=== PATIENT | male | born 1965 | race Caucasian/White ===

== ENCOUNTER 2018-06-06 17:36 | Inpatient (IN) | payer MEDICAID ==
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
[2018-06-06] MEDS ORDERED: Morphine 4 MG/ML Syringe IVPUSH ONE (18:40)
[2018-06-06] MEDS ORDERED: Sodium Chloride 0.9% 1,000 ML IV ONE (18:42)
[2018-06-06] MEDS ORDERED: Iopamidol 755 Mg/ML 100 ML Bottle IV ONE (18:54)
[2018-06-06] MEDS: Sodium Chloride 0.9% 10 ML Syringe FLUSH PRN (19:05)
[2018-06-06] MEDS ORDERED: Morphine 2 MG/ML Syringe ONE (19:10)
[2018-06-06] MEDS ORDERED: Morphine 2 MG/ML Syringe IVPUSH ONE (19:15)
[2018-06-06] MEDS ORDERED: Piperacillin/Tazobactam 3.375 GM in Sodium Chloride 0.9% 50 ML IV STA (19:39)
[2018-06-06] MEDS ORDERED: HYDROmorphone 2 MG/ML SDV IVPUSH ONE (19:41)
--- NOTE | 2018-06-06 20:47 | PCM.HP ---
H&P History of Present Illness - General Date of Service: 06/06/18 Source of Information: Patient, Old Records History Limitations: Reports: No Limitations - History of Present Illness Symptom Onset Date: 06/05/18 (became much worse this afternoon) Location: Reports: Abdomen (RUQ) Quality: Reports: Sharp, Stabbing, Other (Radiates to right shoulder) Improves with: Reports: Movement Worsens with: Reports: None Associated Symptoms: Reports: No Other Symptoms, Diaphoresis abdominal Pain Score (Numeric/FACES): 10 - Related Data Allergies/Adverse Reactions: Allergies Allergy/AdvReac Type Severity Reaction Status Date / Time codeine Allergy Rash Verified 06/06/18 19:12 hydrocortisone Allergy Abdominal Verified 06/06/18 19:12 [From Hydrocortone] Pain Home Medications: Home Meds Acetaminophen/oxyCODONE [Percocet 325-5 MG] 0.5 - 1 tab PO BID PRN 01/16/18 [ History] ClonazePAM [KlonoPIN] 0.5 mg PO BEDTIME 01/16/18 [History] oxyCODONE HCl [Oxycontin] 40 mg PO BID 01/16/18 [History] tiZANidine HCl [Zanaflex] 4 mg PO BEDTIME 01/16/18 [History] Cetirizine [ZyrTEC] 10 mg PO DAILY 06/06/18 [History] Past Medical History HEENT History: Reports: Hard of Hearing Other HEENT History: L hearing problems from tube plugged Cardiovascular History: Reports: Hypertension Respiratory History: Reports: COPD, Sleep Apnea Gastrointestinal History: Reports: Chronic Constipation, GERD Musculoskeletal History: Reports: Fracture, Neck Pain, Chronic Other Musculoskeletal History: hx R ft fx, mid back transverse process fx Neurological History: Reports: Migraines Other Neuro History: Tension headaches, TBI Psychiatric History: Reports: Anxiety, Depression, Panic Attack - Infectious Disease History Infectious Disease History: Reports: Chicken Pox - Past Surgical History HEENT Surgical History: Reports: Adenoidectomy, Eye Surgery, Tonsillectomy Other HEENT Surgeries/Procedures: lazy eye surgery R eye GI Surgical History: Reports: Colonoscopy Neurological Surgical History: Reports: C-Spine, Spinal Fusion Other Neurological Surgeries/Procedures: neck fusion Musculoskeletal Surgical History: Reports: Other (See Below) Other Musculoskeletal Surgeries/Procedures:: neck fusion Social & Family History - Family History Family Medical History: Noncontributory - Tobacco Use Smoking Status *Q: Current Every Day Smoker Years of Tobacco use: 20 Packs/Tins Daily: 0.5 - Caffeine Use Caffeine Use: Reports: Soda - Recreational Drug Use Recreational Drug Use: No H&P Review of Systems - Review of Systems: Review Of Systems: See Below General: Reports: Diaphoresis. Denies: Fever, Chills Pulmonary: Reports: No Symptoms Cardiovascular: Reports: No Symptoms Gastrointestinal: Reports: Abdominal Pain (as in HPI) Genitourinary: Reports: No Symptoms Musculoskeletal: Reports: Neck Pain, Shoulder Pain (right) Exam - Exam Exam: See Below - Vital Signs Vital Signs: Last Vital Signs Temp 98.1 F 06/06/18 17:36 Pulse 68 06/06/18 17:36 Resp 16 06/06/18 18:45 BP 186/99 H 06/06/18 18:45 Pulse Ox 98 06/06/18 18:45 Weight: 97.522 kg - Exam General: Alert, Oriented Lungs: Clear to Auscultation, Normal Respiratory Effort Cardiovascular: Regular Rate, Regular Rhythm GI/Abdominal Exam: No Distention, No Mass, Guarding, Tender. No: Distended, Hernia - Patient Data Lab Results Last 24 hrs: Laboratory Results - last 24 hr 06/06/18 06/06/18 06/06/18 Range/Units 18:00 18:00 18:00 WBC 14.8 H (4.5-12.0) X10-3/uL RBC 5.56 (4.30-5.75) x10(6)uL Hgb 15.9 H (11.5-15.5) g/dL Hct 47.2 (30.0-51.3) % MCV 84.8 (80-96) fL MCH 28.6 (27.7-33.6) pg MCHC 33.7 (32.2-35.4) g/dL RDW 12.6 (11.5-15.5) % Plt Count 235 (125-369) X10(3)uL MPV 7.0 L (7.4-10.4) fL Add Manual Diff Yes Neutrophils % (Manual) 83 H (46-82) % Band Neutrophils % 2 (0-6) % Lymphocytes % (Manual) 10 L (13-37) % Monocytes % (Manual) 5 (4-12) % Sodium 139 (135-145) mmol/L Potassium 3.6 (3.5-5.3) mmol/L Chloride 99 L (100-110) mmol/L Carbon Dioxide 29 (21-32) mmol/L BUN 18 (7-18) mg/dL Creatinine 1.3 (0.70-1.30) mg/dL Est Cr Clr Drug Dosing TNP Estimated GFR (MDRD) 58 L (>60) BUN/Creatinine Ratio 13.8 (9-20) Glucose 192 H D (80-116) mg/dL Calcium 8.9 (8.6-10.2) mg/dL Total Bilirubin 0.8 (0.1-1.3) mg/dL Direct Bilirubin 0.24 H (0.10-0.20) mg/dL AST 29 H D (5-25) IU/L ALT 31 (12-36) U/L Alkaline Phosphatase 95 (56-112) IU/L Troponin I < 0.017 L (<0.017-0.056) ng/mL Total Protein 7.7 (6.0-8.0) g/dL Albumin 3.7 (3.5-5.2) g/dL Amylase 22 L (25-115) U/L Urine Color (YELLOW) Urine Appearance (CLEAR) Urine pH (5.0-6.5) Ur Specific [place] (1.010-1.025) Urine Protein (NEGATIVE) mg/dL Urine Glucose (UA) (NEGATIVE) mg/dL Urine Ketones (NEGATIVE) mg/dL Urine Occult Blood (NEGATIVE) Urine Nitrite (NEGATIVE) Urine Bilirubin (NEGATIVE) Urine Urobilinogen (NEGATIVE) mg/dL Ur Leukocyte Esterase (NEGATIVE) Urine RBC (0) Urine WBC (0) Ur Squamous Epith Cells (NS,R,O) Urine Bacteria (NS) Urine Opiates Screen (NEGATIVE) Ur Oxycodone Screen (NEGATIVE) Ur Propoxyphene Screen (NEGATIVE) Ur Barbituates Screen (NEGATIVE) Ur Tricyclics Screen (NEGATIVE) Ur Phencyclidine Scrn (NEGATIVE) Ur Amphetamine Screen (NEGATIVE) Urine MDMA Screen (NEGATIVE) U Benzodiazepines Scrn (NEGATIVE) U Cocaine Metab Screen (NEGATIVE) U Marijuana (THC) Screen (NEGATIVE) 06/06/18 06/06/18 Range/Units 18:35 18:35 WBC (4.5-12.0) X10-3/uL RBC (4.30-5.75) x10(6)uL Hgb (11.5-15.5) g/dL Hct (30.0-51.3) % MCV (80-96) fL MCH (27.7-33.6) pg MCHC (32.2-35.4) g/dL RDW (11.5-15.5) % Plt Count (125-369) X10(3)uL MPV (7.4-10.4) fL Add Manual Diff Neutrophils % (Manual) (46-82) % Band Neutrophils % (0-6) % Lymphocytes % (Manual) (13-37) % Monocytes % (Manual) (4-12) % Sodium (135-145) mmol/L Potassium (3.5-5.3) mmol/L Chloride (100-110) mmol/L Carbon Dioxide (21-32) mmol/L BUN (7-18) mg/dL Creatinine (0.70-1.30) mg/dL Est Cr Clr Drug Dosing Estimated GFR (MDRD) (>60) BUN/Creatinine Ratio (9-20) Glucose (80-116) mg/dL Calcium (8.6-10.2) mg/dL Total Bilirubin (0.1-1.3) mg/dL Direct Bilirubin (0.10-0.20) mg/dL AST (5-25) IU/L ALT (12-36) U/L Alkaline Phosphatase (56-112) IU/L Troponin I (<0.017-0.056) ng/mL Total Protein (6.0-8.0) g/dL Albumin (3.5-5.2) g/dL Amylase (25-115) U/L Urine Color [place] (YELLOW) Urine Appearance Clear (CLEAR) Urine pH 6.0 (5.0-6.5) Ur Specific [place] 1.020 (1.010-1.025) Urine Protein 100 H (NEGATIVE) mg/dL Urine Glucose (UA) Normal (NEGATIVE) mg/dL Urine Ketones 15 H (NEGATIVE) mg/dL Urine Occult Blood Moderate H (NEGATIVE) Urine Nitrite Negative (NEGATIVE) Urine Bilirubin Small H (NEGATIVE) Urine Urobilinogen 4 H (NEGATIVE) mg/dL Ur Leukocyte Esterase Negative (NEGATIVE) Urine RBC 10-20 H (0) Urine WBC 0-5 (0) Ur Squamous Epith Cells Moderate H (NS,R,O) Urine Bacteria Moderate H (NS) Urine Opiates Screen Positive H (NEGATIVE) Ur Oxycodone Screen Positive (NEGATIVE) Ur Propoxyphene Screen Negative (NEGATIVE) Ur Barbituates Screen Negative (NEGATIVE) Ur Tricyclics Screen Negative (NEGATIVE) Ur Phencyclidine Scrn Negative (NEGATIVE) Ur Amphetamine Screen Negative (NEGATIVE) Urine MDMA Screen Negative (NEGATIVE) U Benzodiazepines Scrn Negative (NEGATIVE) U Cocaine Metab Screen Negative (NEGATIVE) U Marijuana (THC) Screen Negative (NEGATIVE) Result Diagrams: 06/06/18 18:00 06/06/18 18:00 Imaging Impressions Last 24 hrs: CT shows acute cholecystitis - Problem List (1) Acute cholecystitis SNOMED Code(s): 24995991 ICD Code: K81.0 - ACUTE CHOLECYSTITIS Status: Acute Current Visit: Yes Problem List Initiated/Reviewed/Updated: Yes Orders Last 24hrs: Active Orders 24 hr Category Date Time Status EKG Documentation Completion [RC] ASDIRECTED Care 06/06/18 17:49 Active Abdomen 2V AP Flat Upright [CR] Stat Exams 06/06/18 17:48 Taken Abdomen Pelvis w Cont [CT] Stat Exams 06/06/18 18:36 Taken Sodium Chloride 0.9% [Saline Flush] Med 06/06/18 18:43 Active 10 ml FLUSH ASDIRECTED PRN Peripheral IV Insertion Adult [OM.PC] Routine Oth 06/06/18 18:43 Ordered EKG 12 Lead [EK] Routine Ther 06/06/18 17:48 Ordered Medication Orders Sodium Chloride (Saline Flush) 10 ml FLUSH ASDIRECTED PRN PRN Reason: Keep Vein Open Last Admin: 06/06/18 19:05 Dose: 10 ml Assessment/Plan Comment:: Will proceed with emergent lap verito raman Discussed risks and complications of bleeding infection, anesth, bile duct injury and need to open, consent obtained
[2018-06-06] MEDS ORDERED: Rocuronium 100 MG/10 ML MDV IV ONE (21:27)
[2018-06-06] MEDS ORDERED: Sugammadex Sodium 200 MG/2 ML VIAL IV ONE (21:27)
[2018-06-06] MEDS ORDERED: Lidocaine 2% 100 MG/5 ML Syringe IVPUSH ONE (21:27)
[2018-06-06] MEDS ORDERED: HYDROmorphone 2 MG/ML SDV IV ONE (21:27)
[2018-06-06] MEDS ORDERED: Midazolam 1 MG/ML 2 ML SDV IV ONE (21:27)
[2018-06-06] MEDS ORDERED: Lactated Ringers 1,000 ML IV ONE (21:27)
[2018-06-06] MEDS ORDERED: Acetaminophen 1,000 MG/100 ML Infusion Bottle IV ONE (21:27)
[2018-06-06] MEDS ORDERED: Labetalol 20 MG/4 ML Syringe IV ONE (21:27)
[2018-06-06] MEDS ORDERED: Propofol 200 MG/20 ML SDV IV ONE (21:27)
[2018-06-06] MEDS ORDERED: Dexamethasone 4 MG/ML 5 ML MDV IVPUSH ONE (21:27)
[2018-06-06] MEDS ORDERED: Ondansetron 4 MG/2 ML SDV IVPUSH ONE (21:27)
[2018-06-06] MEDS ORDERED: Dexmedetomidine 200 MCG/2 ML SDV IV ONE (21:27)
--- NOTE | 2018-06-07 01:30 | PCM.OPNOTE ---
- General Post-Op/Procedure Note Date of Surgery/Procedure: 06/07/18 Operative Procedure(s): Lap Ellen. Peritoneal lavage. Adhesiolysis Findings: Acute perforated Cholecystitis; Cholelithiasis Pre Op Diagnosis: Acute Cholecystitis Post-Op Diagnosis: Same Anesthesia Technique: General ET Tube Primary Surgeon: Tobi Lau Anesthesia Provider: Karolyn Dobson Pathology: Gallbladder and Cultures EBL in mLs: 200 Surgical Drain/Tube Type: Haider Rizo Round Drain Complications: None Condition: Good
[2018-06-07] MEDS: Lactated Ringers 1,000 ML IV SCH ×3 (02:53→23:38)
[2018-06-07] MEDS: Piperacillin/Tazobactam 3.375 GM in Sodium Chloride 0.9% 50 ML IV SCH ×4 (03:05→20:10)
--- NOTE | 2018-06-07 04:00 | OR ---
DATE OF OPERATION: 06/07/2018 SURGEON: Tobi Lau MD PREOPERATIVE DIAGNOSIS: Acute cholecystitis. POSTOPERATIVE DIAGNOSIS: Acute perforated cholecystitis and cholelithiasis with peritonitis and adhesions. PROCEDURE: 1. Laparoscopic cholecystectomy with adhesiolysis. 2. Peritoneal lavage. ANESTHESIA: General. PROCEDURE DETAILS: The patient was brought to the operating room, where general endotracheal anesthesia was administered. Flowtrons were placed. The abdomen was prepped with ChloraPrep and draped sterilely. An infraumbilical incision was made and extended into the peritoneal cavity without difficulty. The Troy cannulator was introduced and pneumoperitoneum obtained. There was peritonitis throughout with the bowel, omental, and peritoneal surfaces being edematous and inflamed. There is cloudy yellowish drainage along the gutters and did not appear to be pus but rather cloudy ascites. This was suctioned and sent for culture. 200 mL of ascites was removed. Two 6-8 mm gallstones were present along the right gutter. The gallbladder was walled off with omentum, and approximately half an hour was spent peeling the omentum off the undersurface of the gallbladder and liver to visualize this. The stomach was distended, so an orogastric tube was placed to decompress this also. The patient was placed in reverse Trendelenburg position and rotated to his left. The gallbladder was too tense to grasp, so approximately 40 mL of fluid was removed. Gallbladder was still difficult to grasp well during the procedure. As I grasped the gallbladder and retracted it cephalad, I was able to strip some of the thickened peritoneum off its base. In doing so, it became apparent that the gallbladder had perforated near the base of the body and neck, and this area was very inflamed and scarred and difficult to dissect. Several more gallstones came out through this opening in the gallbladder during the procedure. With tedious dissection, I was able to identify the cystic artery which was seen pulsating and going onto the surface of the gallbladder. This was doubly clipped proximally, once distally, and then transected. The neck of the gallbladder was very thick and inflamed due to the adjacent perforation. I was able to peel away some of the thickened peritoneum and identify the cystic duct. I was able to dissect around this circumferentially but was unable to dissect the lower portion of the gallbladder because of its inability to be moved or retracted. I decided to attempt to remove as much of the gallbladder from the bed of the liver as possible before I did any clipping or cutting of structures. I was able to free up approximately the upper half of the gallbladder, but the posterior wall was unable to be dissected from the bed of the liver. Many more gallstones came out during this portion. I was, however, able to free up enough of the gallbladder to help confirm the anatomy. I did not feel that a cholangiogram was possible since the cystic duct was too thick and inflamed to attempt cannulation. I eventually decided to transect the gallbladder at its lower body portion leaving the neck and cystic duct. Once I did this, the gallbladder was freed up from the rest of the bed of the liver and placed in an Endopouch and removed. The portion of the gallbladder that remained was the neck and cystic duct. I did not feel comfortable trying to dissect this further since it was so thick and inflamed. I placed a 2-0 PDS ligature around the junction of the neck and cystic duct to seal this off. There was a posterior branch of the cystic artery that had been bleeding intermittently during the procedure, and I did identify this and clip it. A second Endopouch was inserted, and all the gallstones were retrieved that I could find. Much time was spent irrigating and trying to make sure that all the gallstones had been removed. Once the gallbladder was removed, there was no problem with hemostasis, so a Surgicel was not placed. I did place a quarter-inch round Davol drain in the bed of the liver and brought out through the right lateral port and secured to the skin with 2-0 silk. Almost 2 L of irrigation was used to remove all the cloudy fluid from the right gutter, pelvis, and right upper quadrant. The ports were removed under direct vision and remained hemostatic. Umbilical fascia was closed with #0 Vicryl. Skin was closed with #4-0 Vicryl subcuticular sutures. Benzoin and Steri-Strips were placed and Band-Aids applied. The patient tolerated the procedure well. Estimated blood loss, 200 mL. He returned to Postanesthesia in stable condition. /[id number] DELMER/LINDA MERCADO
[2018-06-07] MEDS: Acetaminophen/HYDROcodone 325-7.5 MG Tab PO PRN ×4 (05:20→18:27)
--- NOTE | 2018-06-07 08:38 | CR ---
INDICATION: Abdomen pain, elevated white count at 14,800. ABDOMEN: Four images of the abdomen in supine and upright projections revealed a fairly nonspecific pattern of gas and feces without evidence of free air or obstruction. There is a capsule-like density near the cap of the cecum, which could represent medication, although unusual appendicolith would also be a consideration. This should be correlated clinically. Overlying EKG leads and snaps are noted. Mild dextroconcave scoliosis of the lower middle lumbar spine is noted. No organomegaly or mass lesions were suggested. IMPRESSION: Nonacute abdomen - medication, game shot, versus unusual appendicolith in the right lower quadrant - correlate clinically. Report was called to Dr. Tellez at 1850 hours on 06/06/17. [facility]
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
[2018-06-07] MEDS: oxyCODONE ER 20 MG TAB.ER PO SCH ×2 (10:33→21:41)
--- NOTE | 2018-06-07 11:44 | PCM.SURGPN ---
- General Info Date of Service: 06/07/18 POD#: 0 Functional Status: Reports: Pain Controlled, Tolerating Diet - Review of Systems General: Reports: No Symptoms Pulmonary: Reports: No Symptoms Cardiovascular: Reports: No Symptoms Gastrointestinal: Reports: Abdominal Pain (much better, controlled with meds) - Patient Data Vitals - Most Recent: Last Vital Signs Temp 96.9 F 06/07/18 05:00 Pulse 70 06/07/18 07:00 Resp 16 06/07/18 07:00 BP 119/71 06/07/18 07:00 Pulse Ox 94 L 06/07/18 07:00 Weight - Most Recent: 102.058 kg I&O - Last 24 Hours: Intake & Output 06/06/18 06/07/18 06/07/18 22:59 06:59 14:59 Intake Total 430 Output Total 895 Balance -465 Lab Results Last 24 Hrs: Laboratory Results - last 24 hr 06/06/18 06/06/18 06/06/18 Range/Units 18:00 18:00 18:00 WBC 14.8 H (4.5-12.0) X10-3/uL RBC 5.56 (4.30-5.75) x10(6)uL Hgb 15.9 H (11.5-15.5) g/dL Hct 47.2 (30.0-51.3) % MCV 84.8 (80-96) fL MCH 28.6 (27.7-33.6) pg MCHC 33.7 (32.2-35.4) g/dL RDW 12.6 (11.5-15.5) % Plt Count 235 (125-369) X10(3)uL MPV 7.0 L (7.4-10.4) fL Add Manual Diff Yes Neutrophils % (Manual) 83 H (46-82) % Band Neutrophils % 2 (0-6) % Lymphocytes % (Manual) 10 L (13-37) % Monocytes % (Manual) 5 (4-12) % Sodium 139 (135-145) mmol/L Potassium 3.6 (3.5-5.3) mmol/L Chloride 99 L (100-110) mmol/L Carbon Dioxide 29 (21-32) mmol/L BUN 18 (7-18) mg/dL Creatinine 1.3 (0.70-1.30) mg/dL Est Cr Clr Drug Dosing TNP Estimated GFR (MDRD) 58 L (>60) BUN/Creatinine Ratio 13.8 (9-20) Glucose 192 H D (80-116) mg/dL Calcium 8.9 (8.6-10.2) mg/dL Total Bilirubin 0.8 (0.1-1.3) mg/dL Direct Bilirubin 0.24 H (0.10-0.20) mg/dL AST 29 H D (5-25) IU/L ALT 31 (12-36) U/L Alkaline Phosphatase 95 (56-112) IU/L Troponin I < 0.017 L (<0.017-0.056) ng/mL Total Protein 7.7 (6.0-8.0) g/dL Albumin 3.7 (3.5-5.2) g/dL Globulin g/dL Albumin/Globulin Ratio Amylase 22 L (25-115) U/L Urine Color (YELLOW) Urine Appearance (CLEAR) Urine pH (5.0-6.5) Ur Specific [place] (1.010-1.025) Urine Protein (NEGATIVE) mg/dL Urine Glucose (UA) (NEGATIVE) mg/dL Urine Ketones (NEGATIVE) mg/dL Urine Occult Blood (NEGATIVE) Urine Nitrite (NEGATIVE) Urine Bilirubin (NEGATIVE) Urine Urobilinogen (NEGATIVE) mg/dL Ur Leukocyte Esterase (NEGATIVE) Urine RBC (0) Urine WBC (0) Ur Squamous Epith Cells (NS,R,O) Urine Bacteria (NS) Urine Opiates Screen (NEGATIVE) Ur Oxycodone Screen (NEGATIVE) Ur Propoxyphene Screen (NEGATIVE) Ur Barbituates Screen (NEGATIVE) Ur Tricyclics Screen (NEGATIVE) Ur Phencyclidine Scrn (NEGATIVE) Ur Amphetamine Screen (NEGATIVE) Urine MDMA Screen (NEGATIVE) U Benzodiazepines Scrn (NEGATIVE) U Cocaine Metab Screen (NEGATIVE) U Marijuana (THC) Screen (NEGATIVE) 06/06/18 06/06/18 06/07/18 Range/Units 18:35 18:35 06:04 WBC 15.0 H (4.5-12.0) X10-3/uL RBC 4.84 (4.30-5.75) x10(6)uL Hgb 13.6 (11.5-15.5) g/dL Hct 41.0 (30.0-51.3) % MCV 84.8 (80-96) fL MCH 28.1 (27.7-33.6) pg MCHC 33.1 (32.2-35.4) g/dL RDW 12.8 (11.5-15.5) % Plt Count 196 (125-369) X10(3)uL MPV 7.8 (7.4-10.4) fL Add Manual Diff Yes Neutrophils % (Manual) 86 H (46-82) % Band Neutrophils % 4 (0-6) % Lymphocytes % (Manual) 7 L (13-37) % Monocytes % (Manual) 3 L (4-12) % Sodium (135-145) mmol/L Potassium (3.5-5.3) mmol/L Chloride (100-110) mmol/L Carbon Dioxide (21-32) mmol/L BUN (7-18) mg/dL Creatinine (0.70-1.30) mg/dL Est Cr Clr Drug Dosing Estimated GFR (MDRD) (>60) BUN/Creatinine Ratio (9-20) Glucose (80-116) mg/dL Calcium (8.6-10.2) mg/dL Total Bilirubin (0.1-1.3) mg/dL Direct Bilirubin (0.10-0.20) mg/dL AST (5-25) IU/L ALT (12-36) U/L Alkaline Phosphatase (56-112) IU/L Troponin I (<0.017-0.056) ng/mL Total Protein (6.0-8.0) g/dL Albumin (3.5-5.2) g/dL Globulin g/dL Albumin/Globulin Ratio Amylase (25-115) U/L Urine Color [place] (YELLOW) Urine Appearance Clear (CLEAR) Urine pH 6.0 (5.0-6.5) Ur Specific [place] 1.020 (1.010-1.025) Urine Protein 100 H (NEGATIVE) mg/dL Urine Glucose (UA) Normal (NEGATIVE) mg/dL Urine Ketones 15 H (NEGATIVE) mg/dL Urine Occult Blood Moderate H (NEGATIVE) Urine Nitrite Negative (NEGATIVE) Urine Bilirubin Small H (NEGATIVE) Urine Urobilinogen 4 H (NEGATIVE) mg/dL Ur Leukocyte Esterase Negative (NEGATIVE) Urine RBC 10-20 H (0) Urine WBC 0-5 (0) Ur Squamous Epith Cells Moderate H (NS,R,O) Urine Bacteria Moderate H (NS) Urine Opiates Screen Positive H (NEGATIVE) Ur Oxycodone Screen Positive (NEGATIVE) Ur Propoxyphene Screen Negative (NEGATIVE) Ur Barbituates Screen Negative (NEGATIVE) Ur Tricyclics Screen Negative (NEGATIVE) Ur Phencyclidine Scrn Negative (NEGATIVE) Ur Amphetamine Screen Negative (NEGATIVE) Urine MDMA Screen Negative (NEGATIVE) U Benzodiazepines Scrn Negative (NEGATIVE) U Cocaine Metab Screen Negative (NEGATIVE) U Marijuana (THC) Screen Negative (NEGATIVE) 06/07/18 Range/Units 06:04 WBC (4.5-12.0) X10-3/uL RBC (4.30-5.75) x10(6)uL Hgb (11.5-15.5) g/dL Hct (30.0-51.3) % MCV (80-96) fL MCH (27.7-33.6) pg MCHC (32.2-35.4) g/dL RDW (11.5-15.5) % Plt Count (125-369) X10(3)uL MPV (7.4-10.4) fL Add Manual Diff Neutrophils % (Manual) (46-82) % Band Neutrophils % (0-6) % Lymphocytes % (Manual) (13-37) % Monocytes % (Manual) (4-12) % Sodium 138 (135-145) mmol/L Potassium 4.0 (3.5-5.3) mmol/L Chloride 102 (100-110) mmol/L Carbon Dioxide 26 (21-32) mmol/L BUN 16 (7-18) mg/dL Creatinine 1.0 (0.70-1.30) mg/dL Est Cr Clr Drug Dosing 100.93 Estimated GFR (MDRD) > 60 (>60) BUN/Creatinine Ratio 16.0 (9-20) Glucose 160 H (80-116) mg/dL Calcium 8.2 L (8.6-10.2) mg/dL Total Bilirubin 1.1 (0.1-1.3) mg/dL Direct Bilirubin (0.10-0.20) mg/dL AST 49 H D (5-25) IU/L ALT 52 H D (12-36) U/L Alkaline Phosphatase 86 (56-112) IU/L Troponin I (<0.017-0.056) ng/mL Total Protein 6.4 (6.0-8.0) g/dL Albumin 2.8 L (3.5-5.2) g/dL Globulin 3.6 g/dL Albumin/Globulin Ratio 0.8 Amylase (25-115) U/L Urine Color (YELLOW) Urine Appearance (CLEAR) Urine pH (5.0-6.5) Ur Specific [place] (1.010-1.025) Urine Protein (NEGATIVE) mg/dL Urine Glucose (UA) (NEGATIVE) mg/dL Urine Ketones (NEGATIVE) mg/dL Urine Occult Blood (NEGATIVE) Urine Nitrite (NEGATIVE) Urine Bilirubin (NEGATIVE) Urine Urobilinogen (NEGATIVE) mg/dL Ur Leukocyte Esterase (NEGATIVE) Urine RBC (0) Urine WBC (0) Ur Squamous Epith Cells (NS,R,O) Urine Bacteria (NS) Urine Opiates Screen (NEGATIVE) Ur Oxycodone Screen (NEGATIVE) Ur Propoxyphene Screen (NEGATIVE) Ur Barbituates Screen (NEGATIVE) Ur Tricyclics Screen (NEGATIVE) Ur Phencyclidine Scrn (NEGATIVE) Ur Amphetamine Screen (NEGATIVE) Urine MDMA Screen (NEGATIVE) U Benzodiazepines Scrn (NEGATIVE) U Cocaine Metab Screen (NEGATIVE) U Marijuana (THC) Screen (NEGATIVE) Med Orders - Current: Current Medications Hydrocodone Bitart/Acetaminophen ([place] 325-7.5 Mg) 1 tab PO Q4H PRN PRN Reason: Pain (moderate 4-6) Last Admin: 06/07/18 09:21 Dose: 1 tab Cetirizine HCl (Zyrtec) 10 mg PO DAILY COUNTS INCLUDE 234 BEDS AT THE [facility] Clonazepam (Klonopin) 0.5 mg PO BEDTIME COUNTS INCLUDE 234 BEDS AT THE [facility] Lactated Ringer's (Ringers, Lactated) 1,000 mls @ 125 mls/hr IV ASDIRECTED COUNTS INCLUDE 234 BEDS AT THE [facility] Last Admin: 06/07/18 02:53 Dose: 125 mls/hr Piperacillin Sod/Tazobactam (Sod 3.375 gm/ Sodium Chloride) 50 mls @ 100 mls/ hr IV Q6H COUNTS INCLUDE 234 BEDS AT THE [facility] Last Admin: 06/07/18 09:21 Dose: 100 mls/hr Sodium Chloride (Normal Saline) 250 mls @ 100 mls/hr IV ASDIRECTED COUNTS INCLUDE 234 BEDS AT THE [facility] Morphine Sulfate (Morphine) 2 mg IVPUSH Q1H PRN PRN Reason: Abdominal Pain Oxycodone HCl (Oxycontin) 40 mg PO BID ABBI Last Admin: 06/07/18 10:33 Dose: 40 mg Sodium Chloride (Saline Flush) 10 ml FLUSH ASDIRECTED PRN PRN Reason: Keep Vein Open Last Admin: 06/06/18 19:05 Dose: 10 ml Tizanidine HCl (Zanaflex) 4 mg PO BEDTIME ABBI Discontinued Medications Hydromorphone HCl (Dilaudid) 1 mg IVPUSH ONETIME ONE Stop: 06/06/18 19:42 Last Admin: 06/06/18 19:48 Dose: 1 mg Sodium Chloride (Normal Saline) 1,000 mls @ 999 mls/hr IV .BOLUS ONE Stop: 06/06/18 19:42 Last Admin: 06/06/18 19:34 Dose: 999 mls/hr Piperacillin Sod/Tazobactam (Sod 3.375 gm/ Sodium Chloride) 50 mls @ 100 mls/ hr IV Q6H STA Stop: 06/06/18 20:08 Last Admin: 06/06/18 19:44 Dose: 100 mls/hr Iopamidol (Isovue-370 (76%)) 100 ml IV . DIRECTED ONE Stop: 06/06/18 18:55 Last Admin: 06/06/18 19:27 Dose: 100 ml Morphine Sulfate (Morphine) 4 mg IVPUSH ONETIME ONE Stop: 06/06/18 18:41 Last Admin: 06/06/18 19:12 Dose: Not Given Morphine Sulfate (Morphine) Confirm Administered Dose 4 mg .ROUTE .STK-MED ONE Stop: 06/06/18 19:11 Last Admin: 06/06/18 19:12 Dose: Not Given Morphine Sulfate (Morphine) 4 mg IVPUSH ONETIME ONE Stop: 06/06/18 19:16 Last Admin: 06/06/18 19:43 Dose: 4 mg - Exam Wound/Incisions: Dressing Dry and Intact, Drainage (serous from [facility]) General: Alert, Oriented GI/Abdominal Exam: Soft, Tender (mild) - Problem List & Annotations (1) Acute cholecystitis SNOMED Code(s): 04368146 Code(s): K81.0 - ACUTE CHOLECYSTITIS Status: Acute Current Visit: Yes - Problem List Review Problem List Initiated/Reviewed/Updated: Yes - My Orders Last 24 Hours: Active Orders 24 hr Category Date Time Status Patient Status [ADT] Routine ADT 06/07/18 01:37 Active Drain Management [RC] 08,16,00 Care 06/07/18 01:39 Active Oxygen Therapy [RC] PRN Care 06/07/18 01:37 Active RT Incentive Spirometry [RC] Q2HWA Care 06/07/18 01:36 Active Up With Assistance [RC] 09,13,17,21 Care 06/07/18 01:36 Active Vital Signs [RC] Q4HR Care 06/07/18 01:37 Active Clear Liquid Diet [DIET] Diet 06/07/18 Breakfast Ordered CBC W/O DIFF,HEMOGRAM [HEME] Routine Lab 06/09/18 11:42 Ordered CULTURE ANAEROBIC [RM] Routine Lab 06/06/18 22:10 Received CULTURE ROUTINE + SMEAR [RM] Routine Lab 06/06/18 22:10 Received Acetaminophen/HYDROcodone [[place] 325-7.5 MG] Med 06/07/18 01:36 Active 1 tab PO Q4H PRN Cetirizine [ZyrTEC] Med 06/08/18 09:00 Active 10 mg PO DAILY ClonazePAM [KlonoPIN] Med 06/07/18 21:00 Active 0.5 mg PO BEDTIME Lactated Ringers [Ringers, Lactated] 1,000 ml Med 06/07/18 01:45 Active IV ASDIRECTED Morphine Med 06/07/18 01:36 Active 2 mg IVPUSH Q1H PRN Piperacillin/Tazobactam [Zosyn] 3.375 gm Med 06/07/18 02:00 Active Sodium Chloride 0.9% [Normal Saline] 50 ml IV Q6H Sodium Chloride 0.9% [Normal Saline] 250 ml Med 06/07/18 03:15 Active IV ASDIRECTED Sodium Chloride 0.9% [Saline Flush] Med 06/06/18 18:43 Active 10 ml FLUSH ASDIRECTED PRN oxyCODONE ER [OxyCONTIN] Med 06/07/18 10:15 Active 40 mg PO BID tiZANidine [Zanaflex] Med 06/07/18 21:00 Active 4 mg PO BEDTIME Peripheral IV Insertion Adult [OM.PC] Routine Oth 06/06/18 18:43 Ordered Resuscitation Status Routine Resus Stat 06/07/18 01:36 Ordered EKG 12 Lead [EK] Routine Ther 06/06/18 17:48 Ordered Medication Orders Hydrocodone Bitart/Acetaminophen ([place] 325-7.5 Mg) 1 tab PO Q4H PRN PRN Reason: Pain (moderate 4-6) Last Admin: 06/07/18 09:21 Dose: 1 tab Admin: 06/07/18 05:20 Dose: 1 tab Cetirizine HCl (Zyrtec) 10 mg PO DAILY ABBI Clonazepam (Klonopin) 0.5 mg PO BEDTIME ABBI Lactated Ringer's (Ringers, Lactated) 1,000 mls @ 125 mls/hr IV ASDIRECTED ABBI Last Admin: 06/07/18 02:53 Dose: 125 mls/hr Piperacillin Sod/Tazobactam (Sod 3.375 gm/ Sodium Chloride) 50 mls @ 100 mls/ hr IV Q6H ABBI Last Admin: 06/07/18 09:21 Dose: 100 mls/hr Admin: 06/07/18 03:05 Dose: 100 mls/hr Sodium Chloride (Normal Saline) 250 mls @ 100 mls/hr IV ASDIRECTED COUNTS INCLUDE 234 BEDS AT THE [facility] Morphine Sulfate (Morphine) 2 mg IVPUSH Q1H PRN PRN Reason: Abdominal Pain Oxycodone HCl (Oxycontin) 40 mg PO BID COUNTS INCLUDE 234 BEDS AT THE [facility] Last Admin: 06/07/18 10:33 Dose: 40 mg Sodium Chloride (Saline Flush) 10 ml FLUSH ASDIRECTED PRN PRN Reason: Keep Vein Open Last Admin: 06/06/18 19:05 Dose: 10 ml Tizanidine HCl (Zanaflex) 4 mg PO BEDTIME ABBI - Assessment Assessment (Free Text/Narrative):: Doing well Labs reviewed - Plan Plan (Free Text/Narrative):: Cont as is
[2018-06-07] MEDS: Morphine 2 MG/ML Syringe IVPUSH PRN ×3 (18:03→21:50)
[2018-06-07] MEDS: tiZANidine 4 MG Tab PO SCH (21:50)
[2018-06-07] MEDS: ClonazePAM 0.5 MG Tab PO SCH (21:50)
[2018-06-08] MEDS: Piperacillin/Tazobactam 3.375 GM in Sodium Chloride 0.9% 50 ML IV SCH ×4 (01:45→19:59)
[2018-06-08] MEDS: Sodium Chloride 0.9% 250 ML IV SCH (01:47)
[2018-06-08] MEDS: Acetaminophen/HYDROcodone 325-7.5 MG Tab PO PRN ×3 (04:00→17:50)
[2018-06-08] MEDS: Ketorolac 30 MG/ML SDV IVPUSH PRN ×3 (06:30→19:15)
[2018-06-08] MEDS: Sodium Chloride 0.9% 10 ML Syringe FLUSH PRN ×4 (08:11→14:03)
[2018-06-08] MEDS: Cetirizine 10 MG Tab PO SCH (08:14)
[2018-06-08] MEDS: oxyCODONE ER 20 MG TAB.ER PO SCH ×2 (08:14→21:22)
[2018-06-08] MEDS: Lactated Ringers 1,000 ML IV SCH ×2 (10:00→21:18)
--- NOTE | 2018-06-08 14:10 | PCM.SURGPN ---
- General Info Date of Service: 06/08/18 POD#: 1 Functional Status: Reports: Pain Controlled, Tolerating Diet, Ambulating, Urinating - Review of Systems General: Reports: No Symptoms Pulmonary: Reports: No Symptoms Cardiovascular: Reports: No Symptoms Gastrointestinal: Reports: Abdominal Pain (improved), Other (JOYCE drain output turned bilious this am) - Patient Data Vitals - Most Recent: Last Vital Signs Temp 98.7 F 06/08/18 08:00 Pulse 63 06/08/18 08:00 Resp 14 06/08/18 08:00 BP 124/70 06/08/18 08:00 Pulse Ox 99 06/08/18 08:00 Weight - Most Recent: 102.058 kg I&O - Last 24 Hours: Intake & Output 06/07/18 06/08/18 06/08/18 22:59 06:59 14:59 Intake Total 1425 1085 400 Output Total 355 100 300 Balance 1070 985 100 Arvind Results Last 24 Hrs: Microbiology 06/06/18 22:10 Gram Stain - Final Gallbladder Fluid - Bile Med Orders - Current: Current Medications Hydrocodone Bitart/Acetaminophen ([place] 325-7.5 Mg) 1 tab PO Q4H PRN PRN Reason: Pain (moderate 4-6) Last Admin: 06/08/18 11:55 Dose: 1 tab Cetirizine HCl (Zyrtec) 10 mg PO DAILY [facility] Last Admin: 06/08/18 08:14 Dose: 10 mg Clonazepam (Klonopin) 0.5 mg PO BEDTIME [facility] Last Admin: 06/07/18 21:50 Dose: 0.5 mg Lactated Ringer's (Ringers, Lactated) 1,000 mls @ 100 mls/hr IV ASDIRECTED [facility] Last Admin: 06/08/18 10:00 Dose: 100 mls/hr Piperacillin Sod/Tazobactam (Sod 3.375 gm/ Sodium Chloride) 50 mls @ 100 mls/ hr IV Q6H [facility] Last Admin: 06/08/18 14:00 Dose: 100 mls/hr Sodium Chloride (Normal Saline) 250 mls @ 100 mls/hr IV ASDIRECTED [facility] Last Admin: 06/08/18 01:47 Dose: 100 mls/hr Ketorolac Tromethamine (Toradol) 30 mg IVPUSH Q6H PRN PRN Reason: Pain Stop: 06/13/18 06:21 Last Admin: 06/08/18 13:11 Dose: 30 mg Morphine Sulfate (Morphine) 2 mg IVPUSH Q1H PRN PRN Reason: Abdominal Pain Last Admin: 06/07/18 21:50 Dose: 2 mg Oxycodone HCl (Oxycontin) 40 mg PO BID [facility] Last Admin: 06/08/18 08:14 Dose: 40 mg Sodium Chloride (Saline Flush) 10 ml FLUSH ASDIRECTED PRN PRN Reason: Keep Vein Open Last Admin: 06/08/18 14:03 Dose: 10 ml Tizanidine HCl (Zanaflex) 4 mg PO BEDTIME [facility] Last Admin: 06/07/18 21:50 Dose: 4 mg Discontinued Medications Hydromorphone HCl (Dilaudid) 1 mg IVPUSH ONETIME ONE Stop: 06/06/18 19:42 Last Admin: 06/06/18 19:48 Dose: 1 mg Sodium Chloride (Normal Saline) 1,000 mls @ 999 mls/hr IV .BOLUS ONE Stop: 06/06/18 19:42 Last Admin: 06/06/18 19:34 Dose: 999 mls/hr Piperacillin Sod/Tazobactam (Sod 3.375 gm/ Sodium Chloride) 50 mls @ 100 mls/ hr IV Q6H [facility] Stop: 06/06/18 20:08 Last Admin: 06/06/18 19:44 Dose: 100 mls/hr Iopamidol (Isovue-370 (76%)) 100 ml IV . DIRECTED ONE Stop: 06/06/18 18:55 Last Admin: 06/06/18 19:27 Dose: 100 ml Morphine Sulfate (Morphine) 4 mg IVPUSH ONETIME ONE Stop: 06/06/18 18:41 Last Admin: 06/06/18 19:12 Dose: Not Given Morphine Sulfate (Morphine) Confirm Administered Dose 4 mg .ROUTE .STK-MED ONE Stop: 06/06/18 19:11 Last Admin: 06/06/18 19:12 Dose: Not Given Morphine Sulfate (Morphine) 4 mg IVPUSH ONETIME ONE Stop: 06/06/18 19:16 Last Admin: 06/06/18 19:43 Dose: 4 mg - Exam Wound/Incisions: Healing Well, Dressing Dry and Intact General: Alert, Oriented GI/Abdominal Exam: Soft, Non-Tender, Other (Bile in JOYCE bulb) - Problem List & Annotations (1) Acute cholecystitis SNOMED Code(s): 92519552 Code(s): K81.0 - ACUTE CHOLECYSTITIS Status: Acute Current Visit: Yes - Problem List Review Problem List Initiated/Reviewed/Updated: Yes - My Orders Last 24 Hours: Active Orders 24 hr Category Date Time Status CBC W/O DIFF,HEMOGRAM [HEME] Routine Lab 06/09/18 11:42 Ordered COMPREHENSIVE METABOLIC PN,CMP [CHEM] Routine Lab 06/09/18 14:08 Ordered Cetirizine [ZyrTEC] Med 06/08/18 09:00 Active 10 mg PO DAILY ClonazePAM [KlonoPIN] Med 06/07/18 21:00 Active 0.5 mg PO BEDTIME Ketorolac [Toradol] Med 06/08/18 06:20 Active 30 mg IVPUSH Q6H PRN tiZANidine [Zanaflex] Med 06/07/18 21:00 Active 4 mg PO BEDTIME Medication Orders Hydrocodone Bitart/Acetaminophen ([place] 325-7.5 Mg) 1 tab PO Q4H PRN PRN Reason: Pain (moderate 4-6) Last Admin: 06/08/18 11:55 Dose: 1 tab Admin: 06/08/18 04:00 Dose: 1 tab Admin: 06/07/18 18:27 Dose: 1 tab Admin: 06/07/18 14:46 Dose: 1 tab Admin: 06/07/18 09:21 Dose: 1 tab Admin: 06/07/18 05:20 Dose: 1 tab Cetirizine HCl (Zyrtec) 10 mg PO DAILY [facility] Last Admin: 06/08/18 08:14 Dose: 10 mg Clonazepam (Klonopin) 0.5 mg PO BEDTIME [facility] Last Admin: 06/07/18 21:50 Dose: 0.5 mg Lactated Ringer's (Ringers, Lactated) 1,000 mls @ 100 mls/hr IV ASDIRECTED [facility] Last Admin: 06/08/18 10:00 Dose: 100 mls/hr Infusion: 06/08/18 07:38 Dose: 125 mls/hr Admin: 06/07/18 23:38 Dose: 125 mls/hr Admin: 06/07/18 12:39 Dose: 125 mls/hr Infusion: 06/07/18 10:53 Dose: 125 mls/hr Admin: 06/07/18 02:53 Dose: 125 mls/hr Piperacillin Sod/Tazobactam (Sod 3.375 gm/ Sodium Chloride) 50 mls @ 100 mls/ hr IV Q6H [facility] Last Admin: 06/08/18 14:00 Dose: 100 mls/hr Admin: 06/08/18 08:02 Dose: 100 mls/hr Admin: 06/08/18 01:45 Dose: 100 mls/hr Admin: 06/07/18 20:10 Dose: 100 mls/hr Admin: 06/07/18 14:47 Dose: 100 mls/hr Admin: 06/07/18 09:21 Dose: 100 mls/hr Admin: 06/07/18 03:05 Dose: 100 mls/hr Sodium Chloride (Normal Saline) 250 mls @ 100 mls/hr IV ASDIRECTED [facility] Last Admin: 06/08/18 01:47 Dose: 100 mls/hr Ketorolac Tromethamine (Toradol) 30 mg IVPUSH Q6H PRN PRN Reason: Pain Stop: 06/13/18 06:21 Last Admin: 06/08/18 13:11 Dose: 30 mg Admin: 06/08/18 06:30 Dose: 30 mg Morphine Sulfate (Morphine) 2 mg IVPUSH Q1H PRN PRN Reason: Abdominal Pain Last Admin: 06/07/18 21:50 Dose: 2 mg Admin: 06/07/18 21:49 Dose: 2 mg Admin: 06/07/18 18:03 Dose: 2 mg Oxycodone HCl (Oxycontin) 40 mg PO BID [facility] Last Admin: 06/08/18 08:14 Dose: 40 mg Admin: 06/07/18 21:41 Dose: 40 mg Admin: 06/07/18 10:33 Dose: 40 mg Sodium Chloride (Saline Flush) 10 ml FLUSH ASDIRECTED PRN PRN Reason: Keep Vein Open Last Admin: 06/08/18 14:03 Dose: 10 ml Admin: 06/08/18 13:12 Dose: 10 ml Admin: 06/08/18 08:51 Dose: 10 ml Admin: 06/08/18 08:11 Dose: 10 ml Admin: 06/06/18 19:05 Dose: 10 ml Tizanidine HCl (Zanaflex) 4 mg PO BEDTIME [facility] Last Admin: 06/07/18 21:50 Dose: 4 mg - Assessment Assessment (Free Text/Narrative):: Doing well POD # 1 Bile from JOYCE Drain - Plan Plan (Free Text/Narrative):: Cont as is Recheck labs in am
[2018-06-08] MEDS: tiZANidine 4 MG Tab PO SCH (21:18)
[2018-06-08] MEDS: ClonazePAM 0.5 MG Tab PO SCH (21:22)
[2018-06-09] MEDS: Ketorolac 30 MG/ML SDV IVPUSH PRN ×4 (01:16→23:50)
[2018-06-09] MEDS: Piperacillin/Tazobactam 3.375 GM in Sodium Chloride 0.9% 50 ML IV SCH ×4 (02:00→20:19)
[2018-06-09] MEDS: oxyCODONE ER 20 MG TAB.ER PO SCH ×2 (08:57→21:05)
[2018-06-09] MEDS: Cetirizine 10 MG Tab PO SCH (08:58)
[2018-06-09] MEDS: Sodium Chloride 0.9% 10 ML Syringe FLUSH PRN ×3 (09:02→23:51)
[2018-06-09] MEDS: Lactated Ringers 1,000 ML IV SCH ×2 (10:32→21:06)
--- NOTE | 2018-06-09 11:07 | PCM.SURGPN ---
- General Info Date of Service: 06/09/18 Functional Status: Reports: Pain Controlled, Tolerating Diet, Ambulating, Urinating - Review of Systems General: Reports: No Symptoms Gastrointestinal: Reports: No Symptoms - Patient Data Vitals - Most Recent: Last Vital Signs Temp 98.1 F 06/09/18 08:00 Pulse 64 06/09/18 08:00 Resp 16 06/09/18 08:00 BP 135/85 06/09/18 08:00 Pulse Ox 97 06/09/18 08:00 Weight - Most Recent: 102.058 kg I&O - Last 24 Hours: Intake & Output 06/08/18 06/09/18 06/09/18 22:59 06:59 14:59 Intake Total 2305 810 Output Total 405 350 Balance 1900 460 Lab Results Last 24 Hrs: Laboratory Results - last 24 hr 06/09/18 06/09/18 Range/Units 06:25 06:25 WBC 7.7 (4.5-12.0) X10-3/uL RBC 3.50 L (4.30-5.75) x10(6)uL Hgb 10.2 L D (11.5-15.5) g/dL Hct 30.0 D (30.0-51.3) % MCV 85.8 (80-96) fL MCH 29.2 (27.7-33.6) pg MCHC 34.0 (32.2-35.4) g/dL RDW 12.6 (11.5-15.5) % Plt Count 184 (125-369) X10(3)uL Sodium 140 (135-145) mmol/L Potassium 4.3 (3.5-5.3) mmol/L Chloride 104 (100-110) mmol/L Carbon Dioxide 29 (21-32) mmol/L BUN 24 H (7-18) mg/dL Creatinine 1.1 (0.70-1.30) mg/dL Est Cr Clr Drug Dosing 91.76 mL/min Estimated GFR (MDRD) > 60 (>60) BUN/Creatinine Ratio 21.8 H (9-20) Glucose 101 (80-116) mg/dL Calcium 8.3 L (8.6-10.2) mg/dL Total Bilirubin 0.6 (0.1-1.3) mg/dL ALT 22 D (12-36) U/L Alkaline Phosphatase 86 (56-112) IU/L Total Protein 5.9 L (6.0-8.0) g/dL Albumin 2.3 L (3.5-5.2) g/dL Globulin 3.6 g/dL Albumin/Globulin Ratio 0.6 Med Orders - Current: Current Medications Hydrocodone Bitart/Acetaminophen ([place] 325-7.5 Mg) 1 tab PO Q4H PRN PRN Reason: Pain (moderate 4-6) Last Admin: 06/08/18 17:50 Dose: 1 tab Cetirizine HCl (Zyrtec) 10 mg PO DAILY [facility] Last Admin: 06/09/18 08:58 Dose: 10 mg Clonazepam (Klonopin) 0.5 mg PO BEDTIME [facility] Last Admin: 06/08/18 21:22 Dose: 0.5 mg Lactated Ringer's (Ringers, Lactated) 1,000 mls @ 100 mls/hr IV ASDIRECTED [facility] Last Admin: 06/09/18 10:32 Dose: 100 mls/hr Piperacillin Sod/Tazobactam (Sod 3.375 gm/ Sodium Chloride) 50 mls @ 100 mls/ hr IV Q6H [facility] Last Admin: 06/09/18 08:57 Dose: 100 mls/hr Sodium Chloride (Normal Saline) 250 mls @ 100 mls/hr IV ASDIRECTED [facility] Last Admin: 06/08/18 01:47 Dose: 100 mls/hr Ketorolac Tromethamine (Toradol) 30 mg IVPUSH Q6H PRN PRN Reason: Pain Stop: 06/13/18 06:21 Last Admin: 06/09/18 08:07 Dose: 30 mg Morphine Sulfate (Morphine) 2 mg IVPUSH Q1H PRN PRN Reason: Abdominal Pain Last Admin: 06/07/18 21:50 Dose: 2 mg Oxycodone HCl (Oxycontin) 40 mg PO BID [facility] Last Admin: 06/09/18 08:57 Dose: 40 mg Sodium Chloride (Saline Flush) 10 ml FLUSH ASDIRECTED PRN PRN Reason: Keep Vein Open Last Admin: 06/09/18 09:02 Dose: 10 ml Tizanidine HCl (Zanaflex) 4 mg PO BEDTIME [facility] Last Admin: 06/08/18 21:18 Dose: 4 mg Discontinued Medications Hydromorphone HCl (Dilaudid) 1 mg IVPUSH ONETIME ONE Stop: 06/06/18 19:42 Last Admin: 06/06/18 19:48 Dose: 1 mg Sodium Chloride (Normal Saline) 1,000 mls @ 999 mls/hr IV .BOLUS ONE Stop: 06/06/18 19:42 Last Admin: 06/06/18 19:34 Dose: 999 mls/hr Piperacillin Sod/Tazobactam (Sod 3.375 gm/ Sodium Chloride) 50 mls @ 100 mls/ hr IV Q6H [facility] Stop: 06/06/18 20:08 Last Admin: 06/06/18 19:44 Dose: 100 mls/hr Iopamidol (Isovue-370 (76%)) 100 ml IV . DIRECTED ONE Stop: 06/06/18 18:55 Last Admin: 06/06/18 19:27 Dose: 100 ml Morphine Sulfate (Morphine) 4 mg IVPUSH ONETIME ONE Stop: 06/06/18 18:41 Last Admin: 06/06/18 19:12 Dose: Not Given Morphine Sulfate (Morphine) Confirm Administered Dose 4 mg .ROUTE .STK-MED ONE Stop: 06/06/18 19:11 Last Admin: 06/06/18 19:12 Dose: Not Given Morphine Sulfate (Morphine) 4 mg IVPUSH ONETIME ONE Stop: 06/06/18 19:16 Last Admin: 06/06/18 19:43 Dose: 4 mg - Exam Wound/Incisions: Healing Well, Dressing Dry and Intact General: Alert, Oriented GI/Abdominal Exam: Soft, Non-Tender, Other (Still moderate amount of bile leakage into JOYCE) - Problem List & Annotations (1) Acute cholecystitis SNOMED Code(s): 40967012 Code(s): K81.0 - ACUTE CHOLECYSTITIS Status: Acute Current Visit: Yes - Problem List Review Problem List Initiated/Reviewed/Updated: Yes - My Orders Last 24 Hours: Active Orders 24 hr Category Date Time Status Low Fat Diet [DIET] Diet 06/09/18 Dinner Ordered COMPREHENSIVE METABOLIC PN,CMP [CHEM] Routine Lab 06/09/18 06:25 Results Medication Orders Hydrocodone Bitart/Acetaminophen ([place] 325-7.5 Mg) 1 tab PO Q4H PRN PRN Reason: Pain (moderate 4-6) Last Admin: 06/08/18 17:50 Dose: 1 tab Admin: 06/08/18 11:55 Dose: 1 tab Admin: 06/08/18 04:00 Dose: 1 tab Admin: 06/07/18 18:27 Dose: 1 tab Admin: 06/07/18 14:46 Dose: 1 tab Admin: 06/07/18 09:21 Dose: 1 tab Admin: 06/07/18 05:20 Dose: 1 tab Cetirizine HCl (Zyrtec) 10 mg PO DAILY [facility] Last Admin: 06/09/18 08:58 Dose: 10 mg Admin: 06/08/18 08:14 Dose: 10 mg Clonazepam (Klonopin) 0.5 mg PO BEDTIME [facility] Last Admin: 06/08/18 21:22 Dose: 0.5 mg Admin: 06/07/18 21:50 Dose: 0.5 mg Lactated Ringer's (Ringers, Lactated) 1,000 mls @ 100 mls/hr IV ASDIRECTED [facility] Last Admin: 06/09/18 10:32 Dose: 100 mls/hr Infusion: 06/09/18 07:18 Dose: 100 mls/hr Admin: 06/08/18 21:18 Dose: 100 mls/hr Infusion: 06/08/18 20:00 Dose: 100 mls/hr Admin: 06/08/18 10:00 Dose: 100 mls/hr Infusion: 06/08/18 07:38 Dose: 125 mls/hr Admin: 06/07/18 23:38 Dose: 125 mls/hr Admin: 06/07/18 12:39 Dose: 125 mls/hr Infusion: 06/07/18 10:53 Dose: 125 mls/hr Admin: 06/07/18 02:53 Dose: 125 mls/hr Piperacillin Sod/Tazobactam (Sod 3.375 gm/ Sodium Chloride) 50 mls @ 100 mls/ hr IV Q6H [facility] Last Admin: 06/09/18 08:57 Dose: 100 mls/hr Admin: 06/09/18 02:00 Dose: 100 mls/hr Admin: 06/08/18 19:59 Dose: 100 mls/hr Admin: 06/08/18 14:00 Dose: 100 mls/hr Admin: 06/08/18 08:02 Dose: 100 mls/hr Admin: 06/08/18 01:45 Dose: 100 mls/hr Admin: 06/07/18 20:10 Dose: 100 mls/hr Admin: 06/07/18 14:47 Dose: 100 mls/hr Admin: 06/07/18 09:21 Dose: 100 mls/hr Admin: 06/07/18 03:05 Dose: 100 mls/hr Sodium Chloride (Normal Saline) 250 mls @ 100 mls/hr IV ASDIRECTED [facility] Last Admin: 06/08/18 01:47 Dose: 100 mls/hr Ketorolac Tromethamine (Toradol) 30 mg IVPUSH Q6H PRN PRN Reason: Pain Stop: 06/13/18 06:21 Last Admin: 06/09/18 08:07 Dose: 30 mg Admin: 06/09/18 01:16 Dose: 30 mg Admin: 06/08/18 19:15 Dose: 30 mg Admin: 06/08/18 13:11 Dose: 30 mg Admin: 06/08/18 06:30 Dose: 30 mg Morphine Sulfate (Morphine) 2 mg IVPUSH Q1H PRN PRN Reason: Abdominal Pain Last Admin: 06/07/18 21:50 Dose: 2 mg Admin: 06/07/18 21:49 Dose: 2 mg Admin: 06/07/18 18:03 Dose: 2 mg Oxycodone HCl (Oxycontin) 40 mg PO BID [facility] Last Admin: 06/09/18 08:57 Dose: 40 mg Admin: 06/08/18 21:22 Dose: 40 mg Admin: 06/08/18 08:14 Dose: 40 mg Admin: 06/07/18 21:41 Dose: 40 mg Admin: 06/07/18 10:33 Dose: 40 mg Sodium Chloride (Saline Flush) 10 ml FLUSH ASDIRECTED PRN PRN Reason: Keep Vein Open Last Admin: 06/09/18 09:02 Dose: 10 ml Admin: 06/08/18 14:03 Dose: 10 ml Admin: 06/08/18 13:12 Dose: 10 ml Admin: 06/08/18 08:51 Dose: 10 ml Admin: 06/08/18 08:11 Dose: 10 ml Admin: 06/06/18 19:05 Dose: 10 ml Tizanidine HCl (Zanaflex) 4 mg PO BEDTIME [facility] Last Admin: 06/08/18 21:18 Dose: 4 mg Admin: 06/07/18 21:50 Dose: 4 mg - Assessment Assessment (Free Text/Narrative):: Doing well Labs good Still bile leakage - Plan Plan (Free Text/Narrative):: Cont as is Adv Diet
[2018-06-09] MEDS: Acetaminophen/HYDROcodone 325-7.5 MG Tab PO PRN ×2 (13:25→20:18)
[2018-06-09] MEDS: ClonazePAM 0.5 MG Tab PO SCH (20:58)
[2018-06-09] MEDS: tiZANidine 4 MG Tab PO SCH (20:58)
[2018-06-10] MEDS: Piperacillin/Tazobactam 3.375 GM in Sodium Chloride 0.9% 50 ML IV SCH ×4 (01:58→20:14)
[2018-06-10] MEDS: Sodium Chloride 0.9% 10 ML Syringe FLUSH PRN ×3 (02:00→22:12)
[2018-06-10] MEDS: Acetaminophen/HYDROcodone 325-7.5 MG Tab PO PRN ×2 (04:03→20:14)
[2018-06-10] MEDS: Ketorolac 30 MG/ML SDV IVPUSH PRN ×3 (05:49→22:14)
[2018-06-10] MEDS: Lactated Ringers 1,000 ML IV SCH ×2 (07:33→22:12)
[2018-06-10] MEDS: Sodium Chloride 0.9% 250 ML IV SCH (07:45)
[2018-06-10] MEDS ORDERED: ClonazePAM 0.5 MG Tab PO PRN (08:04)
[2018-06-10] MEDS: oxyCODONE ER 20 MG TAB.ER PO SCH ×2 (09:18→21:31)
[2018-06-10] MEDS: Cetirizine 10 MG Tab PO SCH (09:18)
--- NOTE | 2018-06-10 10:21 | PCM.SURGPN ---
- General Info Date of Service: 06/10/18 POD#: 3 Functional Status: Reports: Pain Controlled, Tolerating Diet, Ambulating, Urinating - Review of Systems General: Reports: No Symptoms Gastrointestinal: Reports: No Symptoms - Patient Data Vitals - Most Recent: Last Vital Signs Temp 98.6 F 06/10/18 07:37 Pulse 52 L 06/10/18 07:37 Resp 16 06/10/18 07:37 BP 144/89 H 06/10/18 07:37 Pulse Ox 99 06/10/18 07:37 Weight - Most Recent: 102.058 kg I&O - Last 24 Hours: Intake & Output 06/09/18 06/10/18 06/10/18 22:59 06:59 14:59 Intake Total 298 334 Output Total 205 340 Balance 93 -6 Lab Results Last 24 Hrs: Laboratory Results - last 24 hr 06/09/18 Range/Units 06:25 AST 18 D (5-25) IU/L Arvind Results Last 24 Hrs: Microbiology 06/06/18 22:10 Gram Stain - Final Gallbladder Fluid - Bile Routine Culture - Final Med Orders - Current: Current Medications Hydrocodone Bitart/Acetaminophen ([place] 325-7.5 Mg) 1 tab PO Q4H PRN PRN Reason: Pain (moderate 4-6) Last Admin: 06/10/18 04:03 Dose: 1 tab Cetirizine HCl (Zyrtec) 10 mg PO DAILY [facility] Last Admin: 06/10/18 09:18 Dose: 10 mg Clonazepam (Klonopin) 0.5 mg PO BEDTIME [facility] Last Admin: 06/09/18 20:58 Dose: 0.5 mg Clonazepam (Klonopin) 0.5 mg PO BID PRN PRN Reason: Anxiety Last Admin: 06/10/18 08:40 Dose: 0.5 mg Lactated Ringer's (Ringers, Lactated) 1,000 mls @ 100 mls/hr IV ASDIRECTED [facility] Last Admin: 06/10/18 07:33 Dose: 100 mls/hr Piperacillin Sod/Tazobactam (Sod 3.375 gm/ Sodium Chloride) 50 mls @ 100 mls/ hr IV Q6H [facility] Last Admin: 06/10/18 07:45 Dose: 100 mls/hr Sodium Chloride (Normal Saline) 250 mls @ 100 mls/hr IV ASDIRECTED [facility] Last Admin: 06/10/18 07:45 Dose: 100 mls/hr Ketorolac Tromethamine (Toradol) 30 mg IVPUSH Q6H PRN PRN Reason: Pain Stop: 06/13/18 06:21 Last Admin: 06/10/18 05:49 Dose: 30 mg Morphine Sulfate (Morphine) 2 mg IVPUSH Q1H PRN PRN Reason: Abdominal Pain Last Admin: 06/07/18 21:50 Dose: 2 mg Oxycodone HCl (Oxycontin) 40 mg PO BID [facility] Last Admin: 06/10/18 09:18 Dose: 40 mg Sodium Chloride (Saline Flush) 10 ml FLUSH ASDIRECTED PRN PRN Reason: Keep Vein Open Last Admin: 06/10/18 02:00 Dose: 10 ml Tizanidine HCl (Zanaflex) 4 mg PO BEDTIME [facility] Last Admin: 06/09/18 20:58 Dose: 4 mg Discontinued Medications Hydromorphone HCl (Dilaudid) 1 mg IVPUSH ONETIME ONE Stop: 06/06/18 19:42 Last Admin: 06/06/18 19:48 Dose: 1 mg Sodium Chloride (Normal Saline) 1,000 mls @ 999 mls/hr IV .BOLUS ONE Stop: 06/06/18 19:42 Last Admin: 06/06/18 19:34 Dose: 999 mls/hr Piperacillin Sod/Tazobactam (Sod 3.375 gm/ Sodium Chloride) 50 mls @ 100 mls/ hr IV Q6H [facility] Stop: 06/06/18 20:08 Last Admin: 06/06/18 19:44 Dose: 100 mls/hr Iopamidol (Isovue-370 (76%)) 100 ml IV . DIRECTED ONE Stop: 06/06/18 18:55 Last Admin: 06/06/18 19:27 Dose: 100 ml Morphine Sulfate (Morphine) 4 mg IVPUSH ONETIME ONE Stop: 06/06/18 18:41 Last Admin: 06/06/18 19:12 Dose: Not Given Morphine Sulfate (Morphine) Confirm Administered Dose 4 mg .ROUTE .STK-MED ONE Stop: 06/06/18 19:11 Last Admin: 06/06/18 19:12 Dose: Not Given Morphine Sulfate (Morphine) 4 mg IVPUSH ONETIME ONE Stop: 06/06/18 19:16 Last Admin: 06/06/18 19:43 Dose: 4 mg - Exam Wound/Incisions: Healing Well, Dressing Dry and Intact GI/Abdominal Exam: Soft, Non-Tender, Other (Still bileious output from JOYCE) - Problem List & Annotations (1) Acute cholecystitis SNOMED Code(s): 38183864 Code(s): K81.0 - ACUTE CHOLECYSTITIS Status: Acute Current Visit: Yes - Problem List Review Problem List Initiated/Reviewed/Updated: Yes - My Orders Last 24 Hours: Active Orders 24 hr Category Date Time Status Low Fat Diet [DIET] Diet 06/09/18 Dinner Active ClonazePAM [KlonoPIN] Med 06/10/18 08:04 Active 0.5 mg PO BID PRN Medication Orders Hydrocodone Bitart/Acetaminophen ([place] 325-7.5 Mg) 1 tab PO Q4H PRN PRN Reason: Pain (moderate 4-6) Last Admin: 06/10/18 04:03 Dose: 1 tab Admin: 06/09/18 20:18 Dose: 1 tab Admin: 06/09/18 13:25 Dose: 1 tab Admin: 06/08/18 17:50 Dose: 1 tab Admin: 06/08/18 11:55 Dose: 1 tab Admin: 06/08/18 04:00 Dose: 1 tab Admin: 06/07/18 18:27 Dose: 1 tab Admin: 06/07/18 14:46 Dose: 1 tab Admin: 06/07/18 09:21 Dose: 1 tab Admin: 06/07/18 05:20 Dose: 1 tab Cetirizine HCl (Zyrtec) 10 mg PO DAILY [facility] Last Admin: 06/10/18 09:18 Dose: 10 mg Admin: 06/09/18 08:58 Dose: 10 mg Admin: 06/08/18 08:14 Dose: 10 mg Clonazepam (Klonopin) 0.5 mg PO BEDTIME [facility] Last Admin: 06/09/18 20:58 Dose: 0.5 mg Admin: 06/08/18 21:22 Dose: 0.5 mg Admin: 06/07/18 21:50 Dose: 0.5 mg Clonazepam (Klonopin) 0.5 mg PO BID PRN PRN Reason: Anxiety Last Admin: 06/10/18 08:40 Dose: 0.5 mg Lactated Ringer's (Ringers, Lactated) 1,000 mls @ 100 mls/hr IV ASDIRECTED [facility] Last Admin: 06/10/18 07:33 Dose: 100 mls/hr Infusion: 06/10/18 07:06 Dose: 100 mls/hr Admin: 06/09/18 21:06 Dose: 100 mls/hr Infusion: 06/09/18 20:32 Dose: 100 mls/hr Admin: 06/09/18 10:32 Dose: 100 mls/hr Infusion: 06/09/18 07:18 Dose: 100 mls/hr Admin: 06/08/18 21:18 Dose: 100 mls/hr Infusion: 06/08/18 20:00 Dose: 100 mls/hr Admin: 06/08/18 10:00 Dose: 100 mls/hr Infusion: 06/08/18 07:38 Dose: 125 mls/hr Admin: 06/07/18 23:38 Dose: 125 mls/hr Admin: 06/07/18 12:39 Dose: 125 mls/hr Infusion: 06/07/18 10:53 Dose: 125 mls/hr Admin: 06/07/18 02:53 Dose: 125 mls/hr Piperacillin Sod/Tazobactam (Sod 3.375 gm/ Sodium Chloride) 50 mls @ 100 mls/ hr IV Q6H [facility] Last Admin: 06/10/18 07:45 Dose: 100 mls/hr Admin: 06/10/18 01:58 Dose: 100 mls/hr Admin: 06/09/18 20:19 Dose: 100 mls/hr Admin: 06/09/18 14:00 Dose: 100 mls/hr Admin: 06/09/18 08:57 Dose: 100 mls/hr Admin: 06/09/18 02:00 Dose: 100 mls/hr Admin: 06/08/18 19:59 Dose: 100 mls/hr Admin: 06/08/18 14:00 Dose: 100 mls/hr Admin: 06/08/18 08:02 Dose: 100 mls/hr Admin: 06/08/18 01:45 Dose: 100 mls/hr Admin: 06/07/18 20:10 Dose: 100 mls/hr Admin: 06/07/18 14:47 Dose: 100 mls/hr Admin: 06/07/18 09:21 Dose: 100 mls/hr Admin: 06/07/18 03:05 Dose: 100 mls/hr Sodium Chloride (Normal Saline) 250 mls @ 100 mls/hr IV ASDIRECTED [facility] Last Admin: 06/10/18 07:45 Dose: 100 mls/hr Admin: 06/08/18 01:47 Dose: 100 mls/hr Ketorolac Tromethamine (Toradol) 30 mg IVPUSH Q6H PRN PRN Reason: Pain Stop: 06/13/18 06:21 Last Admin: 06/10/18 05:49 Dose: 30 mg Admin: 06/09/18 23:50 Dose: 30 mg Admin: 06/09/18 16:20 Dose: 30 mg Admin: 06/09/18 08:07 Dose: 30 mg Admin: 06/09/18 01:16 Dose: 30 mg Admin: 06/08/18 19:15 Dose: 30 mg Admin: 06/08/18 13:11 Dose: 30 mg Admin: 06/08/18 06:30 Dose: 30 mg Morphine Sulfate (Morphine) 2 mg IVPUSH Q1H PRN PRN Reason: Abdominal Pain Last Admin: 06/07/18 21:50 Dose: 2 mg Admin: 06/07/18 21:49 Dose: 2 mg Admin: 06/07/18 18:03 Dose: 2 mg Oxycodone HCl (Oxycontin) 40 mg PO BID [facility] Last Admin: 06/10/18 09:18 Dose: 40 mg Admin: 06/09/18 21:05 Dose: 40 mg Admin: 06/09/18 08:57 Dose: 40 mg Admin: 06/08/18 21:22 Dose: 40 mg Admin: 06/08/18 08:14 Dose: 40 mg Admin: 06/07/18 21:41 Dose: 40 mg Admin: 06/07/18 10:33 Dose: 40 mg Sodium Chloride (Saline Flush) 10 ml FLUSH ASDIRECTED PRN PRN Reason: Keep Vein Open Last Admin: 06/10/18 02:00 Dose: 10 ml Admin: 06/09/18 23:51 Dose: 10 ml Admin: 06/09/18 20:21 Dose: 10 ml Admin: 06/09/18 09:02 Dose: 10 ml Admin: 06/08/18 14:03 Dose: 10 ml Admin: 06/08/18 13:12 Dose: 10 ml Admin: 06/08/18 08:51 Dose: 10 ml Admin: 06/08/18 08:11 Dose: 10 ml Admin: 06/06/18 19:05 Dose: 10 ml Tizanidine HCl (Zanaflex) 4 mg PO BEDTIME ABBI Last Admin: 06/09/18 20:58 Dose: 4 mg Admin: 06/08/18 21:18 Dose: 4 mg Admin: 06/07/18 21:50 Dose: 4 mg - Assessment Assessment (Free Text/Narrative):: Doing well Still bile from [facility]YCE - Plan Plan (Free Text/Narrative):: Cont as is, ERCP if bile output continues
[2018-06-10] MEDS: tiZANidine 4 MG Tab PO SCH (21:31)
[2018-06-10] MEDS: ClonazePAM 0.5 MG Tab PO SCH (21:31)
[2018-06-11] MEDS: Piperacillin/Tazobactam 3.375 GM in Sodium Chloride 0.9% 50 ML IV SCH ×3 (03:13→15:05)
[2018-06-11] MEDS: Ketorolac 30 MG/ML SDV IVPUSH PRN (05:03)
[2018-06-11] MEDS: Acetaminophen/HYDROcodone 325-7.5 MG Tab PO PRN ×3 (07:34→19:05)
[2018-06-11] MEDS: oxyCODONE ER 20 MG TAB.ER PO SCH ×2 (09:56→20:52)
[2018-06-11] MEDS: Cetirizine 10 MG Tab PO SCH (09:56)
--- NOTE | 2018-06-11 12:32 | PCM.SURGPN ---
- General Info Date of Service: 06/11/18 POD#: 4 Functional Status: Reports: Pain Controlled, Tolerating Diet, Ambulating, Urinating - Review of Systems General: Reports: No Symptoms Genitourinary: Reports: No Symptoms - Patient Data Vitals - Most Recent: Last Vital Signs Temp 97.9 F 06/11/18 07:36 Pulse 50 L 06/11/18 07:36 Resp 20 06/11/18 07:36 BP 140/70 06/11/18 07:36 Pulse Ox 99 06/11/18 07:36 Weight - Most Recent: 102.058 kg I&O - Last 24 Hours: Intake & Output 06/10/18 06/11/18 06/11/18 21:59 06:59 14:59 Intake Total Output Total Balance Arvind Results Last 24 Hrs: Microbiology 06/06/18 22:10 Gram Stain - Final Gallbladder Fluid - Bile Routine Culture - Final Med Orders - Current: Current Medications Hydrocodone Bitart/Acetaminophen ([place] 325-7.5 Mg) 1 tab PO Q4H PRN PRN Reason: Pain (moderate 4-6) Last Admin: 06/11/18 07:34 Dose: 1 tab Cetirizine HCl (Zyrtec) 10 mg PO DAILY [facility] Last Admin: 06/11/18 09:56 Dose: 10 mg Clonazepam (Klonopin) 0.5 mg PO BEDTIME [facility] Last Admin: 06/10/18 21:31 Dose: 0.5 mg Clonazepam (Klonopin) 0.5 mg PO BID PRN PRN Reason: Anxiety Last Admin: 06/10/18 08:40 Dose: 0.5 mg Lactated Ringer's (Ringers, Lactated) 1,000 mls @ 100 mls/hr IV ASDIRECTED [facility] Last Admin: 06/10/18 22:12 Dose: 100 mls/hr Piperacillin Sod/Tazobactam (Sod 3.375 gm/ Sodium Chloride) 50 mls @ 100 mls/ hr IV Q6H [facility] Last Admin: 06/11/18 10:19 Dose: Not Given Sodium Chloride (Normal Saline) 250 mls @ 100 mls/hr IV ASDIRECTED [facility] Last Admin: 06/10/18 07:45 Dose: 100 mls/hr Ketorolac Tromethamine (Toradol) 30 mg IVPUSH Q6H PRN PRN Reason: Pain Stop: 06/13/18 06:21 Last Admin: 06/11/18 05:03 Dose: 30 mg Morphine Sulfate (Morphine) 2 mg IVPUSH Q1H PRN PRN Reason: Abdominal Pain Last Admin: 06/07/18 21:50 Dose: 2 mg Oxycodone HCl (Oxycontin) 40 mg PO BID [facility] Last Admin: 06/11/18 09:56 Dose: 40 mg Sodium Chloride (Saline Flush) 10 ml FLUSH ASDIRECTED PRN PRN Reason: Keep Vein Open Last Admin: 06/10/18 22:12 Dose: 10 ml Tizanidine HCl (Zanaflex) 4 mg PO BEDTIME [facility] Last Admin: 06/10/18 21:31 Dose: 4 mg Discontinued Medications Hydromorphone HCl (Dilaudid) 1 mg IVPUSH ONETIME ONE Stop: 06/06/18 19:42 Last Admin: 06/06/18 19:48 Dose: 1 mg Sodium Chloride (Normal Saline) 1,000 mls @ 999 mls/hr IV .BOLUS ONE Stop: 06/06/18 19:42 Last Admin: 06/06/18 19:34 Dose: 999 mls/hr Piperacillin Sod/Tazobactam (Sod 3.375 gm/ Sodium Chloride) 50 mls @ 100 mls/ hr IV Q6H [facility] Stop: 06/06/18 20:08 Last Admin: 06/06/18 19:44 Dose: 100 mls/hr Iopamidol (Isovue-370 (76%)) 100 ml IV . DIRECTED ONE Stop: 06/06/18 18:55 Last Admin: 06/06/18 19:27 Dose: 100 ml Morphine Sulfate (Morphine) 4 mg IVPUSH ONETIME ONE Stop: 06/06/18 18:41 Last Admin: 06/06/18 19:12 Dose: Not Given Morphine Sulfate (Morphine) Confirm Administered Dose 4 mg .ROUTE .STK-MED ONE Stop: 06/06/18 19:11 Last Admin: 06/06/18 19:12 Dose: Not Given Morphine Sulfate (Morphine) 4 mg IVPUSH ONETIME ONE Stop: 06/06/18 19:16 Last Admin: 06/06/18 19:43 Dose: 4 mg - Exam Wound/Incisions: Healing Well General: Alert, Oriented GI/Abdominal Exam: Soft, Non-Tender, Other (Still bilious output from JOYCE) - Problem List & Annotations (1) Acute cholecystitis SNOMED Code(s): 18392992 Code(s): K81.0 - ACUTE CHOLECYSTITIS Status: Acute Current Visit: Yes - Problem List Review Problem List Initiated/Reviewed/Updated: Yes - My Orders Last 24 Hours: Medication Orders Hydrocodone Bitart/Acetaminophen ([place] 325-7.5 Mg) 1 tab PO Q4H PRN PRN Reason: Pain (moderate 4-6) Last Admin: 06/11/18 07:34 Dose: 1 tab Admin: 06/10/18 20:14 Dose: 1 tab Admin: 06/10/18 04:03 Dose: 1 tab Admin: 06/09/18 20:18 Dose: 1 tab Admin: 06/09/18 13:25 Dose: 1 tab Admin: 06/08/18 17:50 Dose: 1 tab Admin: 06/08/18 11:55 Dose: 1 tab Admin: 06/08/18 04:00 Dose: 1 tab Admin: 06/07/18 18:27 Dose: 1 tab Admin: 06/07/18 14:46 Dose: 1 tab Admin: 06/07/18 09:21 Dose: 1 tab Admin: 06/07/18 05:20 Dose: 1 tab Cetirizine HCl (Zyrtec) 10 mg PO DAILY [facility] Last Admin: 06/11/18 09:56 Dose: 10 mg Admin: 06/10/18 09:18 Dose: 10 mg Admin: 06/09/18 08:58 Dose: 10 mg Admin: 06/08/18 08:14 Dose: 10 mg Clonazepam (Klonopin) 0.5 mg PO BEDTIME [facility] Last Admin: 06/10/18 21:31 Dose: 0.5 mg Admin: 06/09/18 20:58 Dose: 0.5 mg Admin: 06/08/18 21:22 Dose: 0.5 mg Admin: 06/07/18 21:50 Dose: 0.5 mg Clonazepam (Klonopin) 0.5 mg PO BID PRN PRN Reason: Anxiety Last Admin: 06/10/18 08:40 Dose: 0.5 mg Lactated Ringer's (Ringers, Lactated) 1,000 mls @ 100 mls/hr IV ASDIRECTED [facility] Last Admin: 06/10/18 22:12 Dose: 100 mls/hr Infusion: 06/10/18 17:33 Dose: 100 mls/hr Admin: 06/10/18 07:33 Dose: 100 mls/hr Infusion: 06/10/18 07:06 Dose: 100 mls/hr Admin: 06/09/18 21:06 Dose: 100 mls/hr Infusion: 06/09/18 20:32 Dose: 100 mls/hr Admin: 06/09/18 10:32 Dose: 100 mls/hr Infusion: 06/09/18 07:18 Dose: 100 mls/hr Admin: 06/08/18 21:18 Dose: 100 mls/hr Infusion: 06/08/18 20:00 Dose: 100 mls/hr Admin: 06/08/18 10:00 Dose: 100 mls/hr Infusion: 06/08/18 07:38 Dose: 125 mls/hr Admin: 06/07/18 23:38 Dose: 125 mls/hr Admin: 06/07/18 12:39 Dose: 125 mls/hr Infusion: 06/07/18 10:53 Dose: 125 mls/hr Admin: 06/07/18 02:53 Dose: 125 mls/hr Piperacillin Sod/Tazobactam (Sod 3.375 gm/ Sodium Chloride) 50 mls @ 100 mls/ hr IV Q6H [facility] Last Admin: 06/11/18 10:19 Dose: Admin: 06/11/18 03:13 Dose: 100 mls/hr Admin: 06/10/18 20:14 Dose: 100 mls/hr Admin: 06/10/18 14:19 Dose: 100 mls/hr Admin: 06/10/18 07:45 Dose: 100 mls/hr Admin: 06/10/18 01:58 Dose: 100 mls/hr Admin: 06/09/18 20:19 Dose: 100 mls/hr Admin: 06/09/18 14:00 Dose: 100 mls/hr Admin: 06/09/18 08:57 Dose: 100 mls/hr Admin: 06/09/18 02:00 Dose: 100 mls/hr Admin: 06/08/18 19:59 Dose: 100 mls/hr Admin: 06/08/18 14:00 Dose: 100 mls/hr Admin: 06/08/18 08:02 Dose: 100 mls/hr Admin: 06/08/18 01:45 Dose: 100 mls/hr Admin: 06/07/18 20:10 Dose: 100 mls/hr Admin: 06/07/18 14:47 Dose: 100 mls/hr Admin: 06/07/18 09:21 Dose: 100 mls/hr Admin: 06/07/18 03:05 Dose: 100 mls/hr Sodium Chloride (Normal Saline) 250 mls @ 100 mls/hr IV ASDIRECTED [facility] Last Admin: 06/10/18 07:45 Dose: 100 mls/hr Admin: 06/08/18 01:47 Dose: 100 mls/hr Ketorolac Tromethamine (Toradol) 30 mg IVPUSH Q6H PRN PRN Reason: Pain Stop: 06/13/18 06:21 Last Admin: 06/11/18 05:03 Dose: 30 mg Admin: 06/10/18 22:14 Dose: 30 mg Admin: 06/10/18 14:31 Dose: 30 mg Admin: 06/10/18 05:49 Dose: 30 mg Admin: 06/09/18 23:50 Dose: 30 mg Admin: 06/09/18 16:20 Dose: 30 mg Admin: 06/09/18 08:07 Dose: 30 mg Admin: 06/09/18 01:16 Dose: 30 mg Admin: 06/08/18 19:15 Dose: 30 mg Admin: 06/08/18 13:11 Dose: 30 mg Admin: 06/08/18 06:30 Dose: 30 mg Morphine Sulfate (Morphine) 2 mg IVPUSH Q1H PRN PRN Reason: Abdominal Pain Last Admin: 06/07/18 21:50 Dose: 2 mg Admin: 06/07/18 21:49 Dose: 2 mg Admin: 06/07/18 18:03 Dose: 2 mg Oxycodone HCl (Oxycontin) 40 mg PO BID [facility] Last Admin: 06/11/18 09:56 Dose: 40 mg Admin: 06/10/18 21:31 Dose: 40 mg Admin: 06/10/18 09:18 Dose: 40 mg Admin: 06/09/18 21:05 Dose: 40 mg Admin: 06/09/18 08:57 Dose: 40 mg Admin: 06/08/18 21:22 Dose: 40 mg Admin: 06/08/18 08:14 Dose: 40 mg Admin: 06/07/18 21:41 Dose: 40 mg Admin: 06/07/18 10:33 Dose: 40 mg Sodium Chloride (Saline Flush) 10 ml FLUSH ASDIRECTED PRN PRN Reason: Keep Vein Open Last Admin: 06/10/18 22:12 Dose: 10 ml Admin: 06/10/18 14:32 Dose: 10 ml Admin: 06/10/18 02:00 Dose: 10 ml Admin: 06/09/18 23:51 Dose: 10 ml Admin: 06/09/18 20:21 Dose: 10 ml Admin: 06/09/18 09:02 Dose: 10 ml Admin: 06/08/18 14:03 Dose: 10 ml Admin: 06/08/18 13:12 Dose: 10 ml Admin: 06/08/18 08:51 Dose: 10 ml Admin: 06/08/18 08:11 Dose: 10 ml Admin: 06/06/18 19:05 Dose: 10 ml Tizanidine HCl (Zanaflex) 4 mg PO BEDTIME [facility] Last Admin: 06/10/18 21:31 Dose: 4 mg Admin: 06/09/18 20:58 Dose: 4 mg Admin: 06/08/18 21:18 Dose: 4 mg Admin: 06/07/18 21:50 Dose: 4 mg - Assessment Assessment (Free Text/Narrative):: Doing well Will stop IV antibiotics - Plan Plan (Free Text/Narrative):: Will plan on Discharge tomorrow and ERCP in [place]
[2018-06-11] MEDS: tiZANidine 4 MG Tab PO SCH (20:53)
[2018-06-11] MEDS: ClonazePAM 0.5 MG Tab PO SCH (20:53)
[2018-06-12] MEDS: Acetaminophen/HYDROcodone 325-7.5 MG Tab PO PRN ×2 (01:44→07:40)
--- NOTE | 2018-06-12 06:48 | PCM.SURGPN ---
- General Info Date of Service: 06/12/18 POD#: 5 Functional Status: Reports: Pain Controlled, Tolerating Diet, Ambulating, Urinating - Review of Systems General: Reports: No Symptoms Gastrointestinal: Reports: No Symptoms - Patient Data Vitals - Most Recent: Last Vital Signs Temp 98.5 F 06/11/18 20:53 Pulse 48 L 06/12/18 04:00 Resp 16 06/12/18 04:00 BP 132/74 06/12/18 04:00 Pulse Ox 98 06/12/18 04:00 Weight - Most Recent: 102.058 kg I&O - Last 24 Hours: Intake & Output 06/11/18 06/11/18 06/12/18 14:59 22:59 06:59 Output Total 490 10 Balance -490 -10 Med Orders - Current: Current Medications Hydrocodone Bitart/Acetaminophen ([place] 325-7.5 Mg) 1 tab PO Q4H PRN PRN Reason: Pain (moderate 4-6) Last Admin: 06/12/18 01:44 Dose: 1 tab Cetirizine HCl (Zyrtec) 10 mg PO DAILY [facility] Last Admin: 06/11/18 09:56 Dose: 10 mg Clonazepam (Klonopin) 0.5 mg PO BEDTIME [facility] Last Admin: 06/11/18 20:53 Dose: 0.5 mg Clonazepam (Klonopin) 0.5 mg PO BID PRN PRN Reason: Anxiety Last Admin: 06/10/18 08:40 Dose: 0.5 mg Ketorolac Tromethamine (Toradol) 30 mg IVPUSH Q6H PRN PRN Reason: Pain Stop: 06/13/18 06:21 Last Admin: 06/11/18 05:03 Dose: 30 mg Morphine Sulfate (Morphine) 2 mg IVPUSH Q1H PRN PRN Reason: Abdominal Pain Last Admin: 06/07/18 21:50 Dose: 2 mg Oxycodone HCl (Oxycontin) 40 mg PO BID [facility] Last Admin: 06/11/18 20:52 Dose: 40 mg Sodium Chloride (Saline Flush) 10 ml FLUSH ASDIRECTED PRN PRN Reason: Keep Vein Open Last Admin: 06/10/18 22:12 Dose: 10 ml Tizanidine HCl (Zanaflex) 4 mg PO BEDTIME [facility] Last Admin: 06/11/18 20:53 Dose: 4 mg Discontinued Medications Hydromorphone HCl (Dilaudid) 1 mg IVPUSH ONETIME ONE Stop: 06/06/18 19:42 Last Admin: 06/06/18 19:48 Dose: 1 mg Sodium Chloride (Normal Saline) 1,000 mls @ 999 mls/hr IV .BOLUS ONE Stop: 06/06/18 19:42 Last Admin: 06/06/18 19:34 Dose: 999 mls/hr Piperacillin Sod/Tazobactam (Sod 3.375 gm/ Sodium Chloride) 50 mls @ 100 mls/ hr IV Q6H [facility] Stop: 06/06/18 20:08 Last Admin: 06/06/18 19:44 Dose: 100 mls/hr Lactated Ringer's (Ringers, Lactated) 1,000 mls @ 100 mls/hr IV ASDIRECTED [facility] Last Admin: 06/10/18 22:12 Dose: 100 mls/hr Piperacillin Sod/Tazobactam (Sod 3.375 gm/ Sodium Chloride) 50 mls @ 100 mls/ hr IV Q6H [facility] Last Admin: 06/11/18 15:05 Dose: Not Given Sodium Chloride (Normal Saline) 250 mls @ 100 mls/hr IV ASDIRECTED [facility] Last Admin: 06/10/18 07:45 Dose: 100 mls/hr Iopamidol (Isovue-370 (76%)) 100 ml IV . DIRECTED ONE Stop: 06/06/18 18:55 Last Admin: 06/06/18 19:27 Dose: 100 ml Morphine Sulfate (Morphine) 4 mg IVPUSH ONETIME ONE Stop: 06/06/18 18:41 Last Admin: 06/06/18 19:12 Dose: Not Given Morphine Sulfate (Morphine) Confirm Administered Dose 4 mg .ROUTE .STK-MED ONE Stop: 06/06/18 19:11 Last Admin: 06/06/18 19:12 Dose: Not Given Morphine Sulfate (Morphine) 4 mg IVPUSH ONETIME ONE Stop: 06/06/18 19:16 Last Admin: 06/06/18 19:43 Dose: 4 mg - Exam Wound/Incisions: Dressing Dry and Intact GI/Abdominal Exam: Soft, Non-Tender, Other - Problem List & Annotations (1) Acute cholecystitis SNOMED Code(s): 07829836 Code(s): K81.0 - ACUTE CHOLECYSTITIS Status: Acute Current Visit: Yes - Problem List Review Problem List Initiated/Reviewed/Updated: Yes - My Orders Last 24 Hours: Medication Orders Hydrocodone Bitart/Acetaminophen ([place] 325-7.5 Mg) 1 tab PO Q4H PRN PRN Reason: Pain (moderate 4-6) Last Admin: 06/12/18 01:44 Dose: 1 tab Admin: 06/11/18 19:05 Dose: 1 tab Admin: 06/11/18 14:37 Dose: 1 tab Admin: 06/11/18 07:34 Dose: 1 tab Admin: 06/10/18 20:14 Dose: 1 tab Admin: 06/10/18 04:03 Dose: 1 tab Admin: 06/09/18 20:18 Dose: 1 tab Admin: 06/09/18 13:25 Dose: 1 tab Admin: 06/08/18 17:50 Dose: 1 tab Admin: 06/08/18 11:55 Dose: 1 tab Admin: 06/08/18 04:00 Dose: 1 tab Admin: 06/07/18 18:27 Dose: 1 tab Admin: 06/07/18 14:46 Dose: 1 tab Admin: 06/07/18 09:21 Dose: 1 tab Admin: 06/07/18 05:20 Dose: 1 tab Cetirizine HCl (Zyrtec) 10 mg PO DAILY [facility] Last Admin: 06/11/18 09:56 Dose: 10 mg Admin: 06/10/18 09:18 Dose: 10 mg Admin: 06/09/18 08:58 Dose: 10 mg Admin: 06/08/18 08:14 Dose: 10 mg Clonazepam (Klonopin) 0.5 mg PO BEDTIME [facility] Last Admin: 06/11/18 20:53 Dose: 0.5 mg Admin: 06/10/18 21:31 Dose: 0.5 mg Admin: 06/09/18 20:58 Dose: 0.5 mg Admin: 06/08/18 21:22 Dose: 0.5 mg Admin: 06/07/18 21:50 Dose: 0.5 mg Clonazepam (Klonopin) 0.5 mg PO BID PRN PRN Reason: Anxiety Last Admin: 06/10/18 08:40 Dose: 0.5 mg Ketorolac Tromethamine (Toradol) 30 mg IVPUSH Q6H PRN PRN Reason: Pain Stop: 06/13/18 06:21 Last Admin: 06/11/18 05:03 Dose: 30 mg Admin: 06/10/18 22:14 Dose: 30 mg Admin: 06/10/18 14:31 Dose: 30 mg Admin: 06/10/18 05:49 Dose: 30 mg Admin: 06/09/18 23:50 Dose: 30 mg Admin: 06/09/18 16:20 Dose: 30 mg Admin: 06/09/18 08:07 Dose: 30 mg Admin: 06/09/18 01:16 Dose: 30 mg Admin: 06/08/18 19:15 Dose: 30 mg Admin: 06/08/18 13:11 Dose: 30 mg Admin: 06/08/18 06:30 Dose: 30 mg Morphine Sulfate (Morphine) 2 mg IVPUSH Q1H PRN PRN Reason: Abdominal Pain Last Admin: 06/07/18 21:50 Dose: 2 mg Admin: 06/07/18 21:49 Dose: 2 mg Admin: 06/07/18 18:03 Dose: 2 mg Oxycodone HCl (Oxycontin) 40 mg PO BID [facility] Last Admin: 06/11/18 20:52 Dose: 40 mg Admin: 06/11/18 09:56 Dose: 40 mg Admin: 06/10/18 21:31 Dose: 40 mg Admin: 06/10/18 09:18 Dose: 40 mg Admin: 06/09/18 21:05 Dose: 40 mg Admin: 06/09/18 08:57 Dose: 40 mg Admin: 06/08/18 21:22 Dose: 40 mg Admin: 06/08/18 08:14 Dose: 40 mg Admin: 06/07/18 21:41 Dose: 40 mg Admin: 06/07/18 10:33 Dose: 40 mg Sodium Chloride (Saline Flush) 10 ml FLUSH ASDIRECTED PRN PRN Reason: Keep Vein Open Last Admin: 06/10/18 22:12 Dose: 10 ml Admin: 06/10/18 14:32 Dose: 10 ml Admin: 06/10/18 02:00 Dose: 10 ml Admin: 06/09/18 23:51 Dose: 10 ml Admin: 06/09/18 20:21 Dose: 10 ml Admin: 06/09/18 09:02 Dose: 10 ml Admin: 06/08/18 14:03 Dose: 10 ml Admin: 06/08/18 13:12 Dose: 10 ml Admin: 06/08/18 08:51 Dose: 10 ml Admin: 06/08/18 08:11 Dose: 10 ml Admin: 06/06/18 19:05 Dose: 10 ml Tizanidine HCl (Zanaflex) 4 mg PO BEDTIME [facility] Last Admin: 06/11/18 20:53 Dose: 4 mg Admin: 06/10/18 21:31 Dose: 4 mg Admin: 06/09/18 20:58 Dose: 4 mg Admin: 06/08/18 21:18 Dose: 4 mg Admin: 06/07/18 21:50 Dose: 4 mg - Assessment Assessment (Free Text/Narrative):: Doing well Continued bile leak - Plan Plan (Free Text/Narrative):: Discharge today, plan ERCP
--- NOTE | 2018-06-12 06:54 | PCM.DCSUM1 ---
Discharge Summary - Hospital Course Free Text/Narrative:: Dicatated - Discharge Data Discharge Date: 06/12/18 Discharge Disposition: Home, Self-Care 01 Condition: Good - Discharge Diagnosis/Problem(s) (1) Acute cholecystitis SNOMED Code(s): 58792894 ICD Code: K81.0 - ACUTE CHOLECYSTITIS Status: Acute Current Visit: Yes - Patient Summary/Data Operative Procedure(s) Performed: Lap Ellen. Peritoneal lavage. Adhesiolysis - Patient Instructions Diet: NPO (until after ERCP) Activity: No Strenuous Activities (for 2 weeks) Showering/Bathing: May Shower Wound/Incision Care: Keep Operative Site/Wound Site Clean and Dry Wound/Incision, Other: Empty and record JOYCE drain output - Discharge Plan Home Medications: Home Meds Acetaminophen/oxyCODONE [Percocet 325-5 MG] 1 tab PO QID PRN 01/16/18 [History] ClonazePAM [KlonoPIN] 0.5 mg PO BEDTIME 01/16/18 [History] oxyCODONE HCl [Oxycontin] 40 mg PO BID 01/16/18 [History] tiZANidine HCl [Zanaflex] 4 mg PO BEDTIME 01/16/18 [History] Cetirizine [ZyrTEC] 10 mg PO DAILY 06/06/18 [History] Fluticasone Propionate [Flonase] 2 sprays NASBOTH DAILY 06/07/18 [History] Patient Handouts: Surgical Drain Home Care Forms: ED Department Discharge Referrals: PCP,None [Primary Care Provider] - - Discharge Summary/Plan Comment DC Time >30 min.: Yes - Patient Data Vitals - Most Recent: Last Vital Signs Temp 98.5 F 06/11/18 20:53 Pulse 48 L 06/12/18 04:00 Resp 16 06/12/18 04:00 BP 132/74 06/12/18 04:00 Pulse Ox 98 06/12/18 04:00 Weight - Most Recent: 102.058 kg I&O - Last 24 hours: Intake & Output 06/11/18 06/11/18 06/12/18 14:59 22:59 06:59 Output Total 490 10 Balance -490 -10 Med Orders - Current: Current Medications Hydrocodone Bitart/Acetaminophen ([place] 325-7.5 Mg) 1 tab PO Q4H PRN PRN Reason: Pain (moderate 4-6) Last Admin: 06/12/18 01:44 Dose: 1 tab Cetirizine HCl (Zyrtec) 10 mg PO DAILY [facility] Last Admin: 06/11/18 09:56 Dose: 10 mg Clonazepam (Klonopin) 0.5 mg PO BEDTIME [facility] Last Admin: 06/11/18 20:53 Dose: 0.5 mg Clonazepam (Klonopin) 0.5 mg PO BID PRN PRN Reason: Anxiety Last Admin: 06/10/18 08:40 Dose: 0.5 mg Ketorolac Tromethamine (Toradol) 30 mg IVPUSH Q6H PRN PRN Reason: Pain Stop: 06/13/18 06:21 Last Admin: 06/11/18 05:03 Dose: 30 mg Morphine Sulfate (Morphine) 2 mg IVPUSH Q1H PRN PRN Reason: Abdominal Pain Last Admin: 06/07/18 21:50 Dose: 2 mg Oxycodone HCl (Oxycontin) 40 mg PO BID [facility] Last Admin: 06/11/18 20:52 Dose: 40 mg Sodium Chloride (Saline Flush) 10 ml FLUSH ASDIRECTED PRN PRN Reason: Keep Vein Open Last Admin: 06/10/18 22:12 Dose: 10 ml Tizanidine HCl (Zanaflex) 4 mg PO BEDTIME [facility] Last Admin: 06/11/18 20:53 Dose: 4 mg Discontinued Medications Hydromorphone HCl (Dilaudid) 1 mg IVPUSH ONETIME ONE Stop: 06/06/18 19:42 Last Admin: 06/06/18 19:48 Dose: 1 mg Sodium Chloride (Normal Saline) 1,000 mls @ 999 mls/hr IV .BOLUS ONE Stop: 06/06/18 19:42 Last Admin: 06/06/18 19:34 Dose: 999 mls/hr Piperacillin Sod/Tazobactam (Sod 3.375 gm/ Sodium Chloride) 50 mls @ 100 mls/ hr IV Q6H ST[facility] Stop: 06/06/18 20:08 Last Admin: 06/06/18 19:44 Dose: 100 mls/hr Lactated Ringer's (Ringers, Lactated) 1,000 mls @ 100 mls/hr IV ASDIRECTED [facility] Last Admin: 06/10/18 22:12 Dose: 100 mls/hr Piperacillin Sod/Tazobactam (Sod 3.375 gm/ Sodium Chloride) 50 mls @ 100 mls/ hr IV Q6H [facility] Last Admin: 06/11/18 15:05 Dose: Not Given Sodium Chloride (Normal Saline) 250 mls @ 100 mls/hr IV ASDIRECTED [facility] Last Admin: 06/10/18 07:45 Dose: 100 mls/hr Iopamidol (Isovue-370 (76%)) 100 ml IV . DIRECTED ONE Stop: 06/06/18 18:55 Last Admin: 06/06/18 19:27 Dose: 100 ml Morphine Sulfate (Morphine) 4 mg IVPUSH ONETIME ONE Stop: 06/06/18 18:41 Last Admin: 06/06/18 19:12 Dose: Not Given Morphine Sulfate (Morphine) Confirm Administered Dose 4 mg .ROUTE .STK-MED ONE Stop: 06/06/18 19:11 Last Admin: 06/06/18 19:12 Dose: Not Given Morphine Sulfate (Morphine) 4 mg IVPUSH ONETIME ONE Stop: 06/06/18 19:16 Last Admin: 06/06/18 19:43 Dose: 4 mg
--- NOTE | 2018-06-12 07:30 | DISCH ---
DISCHARGE DATE: 06/12/2018 DISCHARGE DIAGNOSIS: Acute perforated cholecystitis and cholelithiasis. PROCEDURE: Laparoscopic cholecystectomy with adhesiolysis and peritoneal lavage on June 07, 2018. HOSPITAL COURSE: This 53-year-old gentleman presented to the emergency room on June 06, 2018, with severe abdominal pain for the past day or so. CT scan revealed acute cholecystitis with ascites. He was brought to surgery that night. Please see operative report for details. Gallbladder was very significantly inflamed, and I was unable to clearly identify the cystic duct, so the gallbladder was amputated at the neck and ligated with a PDS suture ligature. A drain was placed. Postoperatively, he was kept on IV antibiotics for three days and white blood cell count returned to normal, and he was afebrile. Cultures revealed Haemophilus. The day following surgery, he started having bile from his Ha[place]-Rizo drain. The liver function tests were slightly elevated preoperatively, but returned to normal postop. I did speak with Gastroenterology in [place] on June 09, 2018. We decided to watch the bile drainage over the weekend and if it continued, he would go up there for an ERCP to decompress the bile duct. He continued to have from 50 to 80 mL per shift of bile from the drain. His abdomen is completely soft and nontender. He is eating well. Incisions are all healing nicely. Disposition to home. Will go by car with his son for an ERCP in [place] today or tomorrow. I will follow up with him in clinic later in the week. He will resume his home medications. /[id number] DELMER/LINDA
[2018-06-12] MEDS: oxyCODONE ER 20 MG TAB.ER PO SCH (09:45)
[2018-06-12] MEDS: Cetirizine 10 MG Tab PO SCH (09:46)
== END 2018-06-12 11:21 | disposition home or self-care (01) | DRG 417 ==
LOC: FB.ED 17:36 → FB.SDS 20:41 → FB.MS 06-07 01:36
PROVIDERS: ADMIT Surgery; ATTEND Surgery
PROC: 0DNW4ZZ Release Peritoneum, Percutaneous Endoscopic Approach (ICD-10-PCS; principal; 2018-06-07)
PROC: 0FB44ZZ Excision of Gallbladder, Percutaneous Endoscopic Approach (ICD-10-PCS; principal; 2018-06-07)
PROC: 3E1M38Z Irrigation of Peritoneal Cavity using Irrigating Substance, Percutaneous Approach (ICD-10-PCS; principal; 2018-06-07)
DX: K80.00 Calculus of gallbladder with acute cholecystitis without obstruction (principal); K65.9 Peritonitis, unspecified; K82.A2 Perforation of gallbladder in cholecystitis; H54.7 Unspecified visual loss; I10 Essential (primary) hypertension; H44.9 Unspecified disorder of globe; G47.30 Sleep apnea, unspecified; K59.09 Other constipation; K21.9 Gastro-esophageal reflux disease without esophagitis; G89.29 Other chronic pain; M54.2 Cervicalgia; G43.909 Migraine, unspecified, not intractable, without status migrainosus; F41.9 Anxiety disorder, unspecified; F32.9 Major depressive disorder, single episode, unspecified; F17.210 Nicotine dependence, cigarettes, uncomplicated; M54.5 Low back pain; J44.9 Chronic obstructive pulmonary disease, unspecified; K66.0 Peritoneal adhesions (postprocedural) (postinfection); Z88.5 Allergy status to narcotic agent; Z88.8 Allergy status to other drugs, medicaments and biological substances; Z79.899 Other long term (current) drug therapy; Z79.891 Long term (current) use of opiate analgesic; Z98.1 Arthrodesis status; Z87.820 Personal history of traumatic brain injury
CPT/HCPCS: 36415; 74019; 74177; 80048; 80053; 80076; 80305-QW; 81001; 82150; 84484; 85025; 85027; 85610; 87070; 87075; 87205; 88304; 93005; 96361; 96365; 96375; 99285-25; A9270-GY; C9399; J0131; J1100; J1170; J1885; J2001; J2250; J2270; J2405; J2543; J2704; J3490; J7030; J7050; J7120; Q9967